=== PATIENT | male | born 1965 | race Caucasian/White ===

== ENCOUNTER 2020-09-27 11:36 | Observation (INO) | payer BC, SELFPAY ==
[2020-09-27] VITALS (15 sets, daily range): BP systolic 149–220; BP diastolic 76–141; PULSE 76–97; RESP 14–18; TEMP 36.1–37; O2SAT 94–98; BMI 39.3; BMI 39.2
--- NOTE | 2020-09-27 11:58 | CT_ITS ---
STUDY: CT BRAIN WITHOUT CONTRAST REASON FOR EXAM: Male, 55 years old. Htn, paraesthesias RADIATION DOSAGE (If Supplied By Facility): CTDIvol = ( 38.43 ) mGy, DLP = ( 712.69 ) mGycm TECHNIQUE: Transaxial CT imaging of the brain was performed without administration of intravenous contrast material. Individualized dose optimization techniques were used for this CT. COMPARISON: No relevant priors. FINDINGS: Normal soft tissue structures. Normal calvarium. Normal size ventricles and extra-axial spaces for the patient''s age. Normal white matter tracts of the cerebral hemispheres. Normal basal ganglia and thalami. Normal brainstem. Normal cerebellum. There is no intracranial hemorrhage. There are no findings of an acute ischemic infarction. Mild mucosal thickening along the lateral wall of the left maxillary sinus. CT/Brain/Head without Contrast IMPRESSION: Normal unenhanced CT scan of the brain. Electronically Signed: Emanuel Reynoso MD at 12:39 EDT , Service support ,
--- NOTE | 2020-09-27 11:59 | EKG12_ITS ---
Test Reason : HTN Blood Pressure : / mmHG Vent. Rate : 095 BPM Atrial Rate : 095 BPM P-R Int : 180 ms QRS Dur : 100 ms QT Int : 378 ms P-R-T Axes : 029 019 120 degrees QTc Int : 475 ms Normal sinus rhythm T wave abnormality, consider lateral ischemia Prolonged QT Abnormal ECG Confirmed by PATRIA BONNER, LINNEA ([id number]), commercial production editor MIRIAM WILSON ([id number]) on 09/28/2020 12:43:35 PM Referred By: TIFFANY/KELSEY Confirmed By:LINNEA ESPAÑA MD
--- NOTE | 2020-09-27 12:00 | EX.ED.DYSGE1 ---
HPI History of Present Illness Chief Complaint: Hypertension Detail of Chief Complaint: Blood pressure elevation that was noted today Informant: patient Narrative Narrative: Patient presents to the emergency department stating that he was found to have high blood pressure today. Patient had a wellness clinic at work and told his blood pressure was 210/130 and that he needed to see somebody. Patient went to urgent care and then was referred to the emergency department. Patient complains of a mild headache. Overall he states that he feels well. Patient states he has not seen a doctor in over 18 years and really has not had his blood pressure checked recently. He does not take any medications. Patient also states that about a month ago started having some numbness in his left shoulder as well as his left flank and left foot which has been continuous since that time. Patient denies any new medications. He denies chest pain or shortness of breath. Prior similar symptoms: No PFSH PFSH Home Medications NK 09/27/20 [History Last Taken Unknown] Allergy/AdvReac Type Severity Reaction Status Date / Time No Known Allergies Allergy Verified 09/27/20 11:37 Surgical History (Updated 09/27/20 @ 12:01 by Marleni Smiley) Hx of umbilical hernia repair Social History Smoking Status: Never smoker ROS ROS ED Constitutional Constitutional ED: Reports systems reviewed and no addt'l complaints, except as documented; Denies body ache(s), change in weight or chills Eyes Eyes: Denies acute decrease in peripheral vision, change in vision, double vision or loss of vision ENT ENT ED: Reports none; Denies ear pain, lip swelling, loss taste/smell, neck pain, otalgia or sore throat Cardiovascular Cardiovascular: Reports none; Denies abdominal pain, chest pain with activity, leg edema, lightheadedness, palpitations, rapid heart rate or syncope Respiratory/Chest Respiratory/Chest: Reports none; Denies change in mental status, dry cough, dyspnea, hemoptysis, shortness of breath at rest or shortness of breath with exertion Gastrointestinal Gastrointestinal: Reports none; Denies abdominal pain, change in stool character, diarrhea, hematemesis, hematochezia, melena, rectal bleeding or vomiting Genitourinary Genitourinary ED: Reports none; Denies abdominal discomfort, anuria, dysuria, genital pain or polyuria Musculoskeletal Musculoskeletal: Reports none; Denies arthralgias, back pain, difficulty walking, extremity pain, muscle weakness or myalgias Integumentary Reports none; Denies abscess or rash Neurologic Neurologic: Reports none, numbness and other Details: Headache ; Denies abnormal gait, confusion, focal weakness, frequent falls, headache(s), loss of vision, paresthesias, radicular pain, vertigo or weakness Psychiatric Psychiatric: Reports systems reviewed and no addt'l complaints, except as documented and none; Denies behavioral changes, confusion, difficulty concentrating, hallucinations, suicidal ideation, tactile hallucinations or visual hallucinations Endocrine Endocrinology: Denies none, cold intolerance, excessive sweating, fatigue or heat intolerance Hematologic/Lymphatic Hematologic/Lymphatic: Reports none; Denies anemia, easy bleeding or easy bruising Allergic/Immunologic Allergic/Immunologic ED: Denies as per HPI, none, lip swelling, mouth swelling, throat swelling, tongue swelling or hives EXAM Physical Exam Const Vital Signs: 09/27/20 11:37 09/27/20 12:12 09/27/20 12:15 Temperature 97 F L Temperature Source Temporal Pulse Rate 97 96 Respiratory Rate 16 14 Respiratory Effort Normal Respiratory Pattern Normal Blood Pressure 216/136 H 220/141 H Blood Pressure Mean 162 167 Pulse Ox 98 96 Oxygen Delivery Method Room Air Room Air 09/27/20 13:47 Temperature Temperature Source Pulse Rate 82 Respiratory Rate Respiratory Effort Respiratory Pattern Blood Pressure 183/117 H Blood Pressure Mean 139 Pulse Ox Oxygen Delivery Method Positive well nourished and well developed General Appearance ED: well developed and NAD HEENT Reports TM's clear and moist mucous membranes normocephalic and atraumatic; Negative for trauma or tenderness Tympanic Membrane ED: Yes TM's clear Eyes PERRL and EOMs intact bilaterally General Eye ED: Negative for pale conjunctiva or scleral icterus Neck no lymphadenopathy, supple and no JVD General: Negative for tenderness Chest Wall inspection of chest normal and palpation of chest normal Chest: Negative for tenderness Resp normal respiratory effort and clear to auscultation bilaterally Effort and Inspection: Negative for respiratory distress or pain with movement Auscultation: Negative for rhonchi, wheezes or diminished lung sounds Cardio regular rate, regular rhythm, S1 normal heart sound, S2 normal heart sound and no murmurs Peripheral Pulses: pulses 2+ throughout GI normal to inspection, nondistended, normoactive bowel sounds, soft to palpation, non-tender, non-distended and no masses Back/Spine no CVA tenderness and no thoracic nor lumbar tenderness Extremity normal to inspection General Extremety ED: Negative for edema General Extremity: Negative for edema Neuro oriented x3, CN's II-XII intact bilaterally, no sensory deficits noted and gait normal Sensorium / Orientation: awake, alert, oriented to person, oriented to place and oriented to time Motor Exam: strength 5/5 throughout and strength abnormal Psych mental status grossly normal Skin no rashes or lesions noted and no wounds MDM MDM MDM Narrative Medical decision making narrative: Patient received labetalol 40 mg IV and his systolic improved into the 180s however his diastolic continues to be quite elevated into the 1 teens and 120s. This point case discussed with hospitalist will evaluate patient for admission to further attempt to manage his blood pressure Lab Data Attestation: I reviewed the patient's lab results. Labs: Laboratory Results - last 24 hr 09/27/20 09/27/20 12:08 12:08 WBC 10.7 RBC 5.62 Hgb 15.6 Hct 47.4 MCV 84.3 MCH 27.8 MCHC 32.9 RDW Std Deviation 39.6 RDW Coeff of Elier 12.8 Plt Count 301 MPV 10.7 Immature Gran % (Auto) 0.300 Neut % (Auto) 82.6 H Lymph % (Auto) 10.5 L Elliott % (Auto) 5.5 Eos % (Auto) 0.7 Baso % (Auto) 0.4 Absolute Neuts (auto) 8.9 H Absolute Lymphs (auto) 1.13 Nucleated RBC % 0 Sodium 134 L Potassium 4.0 Chloride 104 Carbon Dioxide 28.0 Anion Gap 2 L BUN 16 Creatinine 1.13 Estim Creat Clear Calc 77.16 Est GFR (MDRD) Af Amer 87 Est GFR (MDRD) Non-Af 72 BUN/Creatinine Ratio 14.2 Glucose 110 H Calcium 8.9 Troponin I High Sens 17.8 Radiography Diagnostic Testing: Radiology Impression Brain CT 09/27/20 11:58 IMPRESSION: Normal unenhanced CT scan of the brain. Electronically Signed: Emanuel Reynoso MD at 12:39 EDT , Service support , EKG Initial EKG: Attestation: I personally reviewed and interpreted this EKG as follows: Comments: Sinus rhythm with a ventricular rate of [address] changes. Patient has flipped T waves in lateral leads. No old EKGs available for comparison. Prior EKG tracings: not available for review Discharge Plan Triage Chief Complaint: Hypertension ED Provider: Franky Alatorre Dx/Rx/DC Orders Clinical Impression: Hypertensive urgency Prescriptions: No Action NK RF: 0 Primary Care Provider: Care Physician,No Primary Referrals: Care Physician,No Primary [Primary Care Provider] - Disposition Disposition: Acute Care Hospital [facility]
--- NOTE | 2020-09-27 12:03 | NURSING ---
NO OLD EKGS
[2020-09-27 12:19] LABS: Absolute Lymphocyte Count 1.13 X10^3/uL (0.83-4.51); Absolute Neutrophil Count 8.9 X10^3/uL (2.0-7.7); Basophil# 0.04 X10^3/uL; Basophil% 0.4 % (0-1); Eosinophil# 0.08 X10^3/uL; Eosinophils% 0.7 % (0-5); Hematocrit 47.4 % (40-54); Hemoglobin 15.6 g/dL (13.0-16.5); Lymphocyte # 1.13 X10^3/ul (0.83-4.51); Lymphocyte % 10.5 % (19-41); Mean Corp Hgb Conc 32.9 g/dL (32-36); Mean Corpuscular Hgb 27.8 pg (27.0-32.0); Mean Corpuscular Volume 84.3 fL (80-94); Mean Platelet Vol. 10.7 fl (6.2-12.0); Monocyte# 0.59 X10^3/uL; Monocyte% 5.5 % (0-10); NRBC Flagged by Analyzer 0 % (0-5); Neutrophil # 8.85 X10^3/uL (2.7-7.7); Neutrophil % 82.6 % (47-70); Platelet Count 301 K/mm3 (150-450); RBC Distribution Width CV 12.8 % (11.6-14.6); RBC Distribution Width SD 39.6 fl (35.1-43.9); Red Blood Count 5.62 M/mm3 (4.6-6.2); White Blood Count 10.7 K/mm3 (4.4-11.0)
[2020-09-27 12:36] LABS: Anion Gap 2 (5-15); BUN 16 mg/dL (7-18); BUN/Creat Ratio 14.2 RATIO (10-20); Calcium,Total 8.9 mg/dL (8.5-10.1); Chloride 104 mmol/L (98-107); Creatinine, Serum 1.13 mg/dL (0.70-1.30); EST Glomerular Filtration Rate 72 mL/min (>60); Est Glom Filt Rate - Afr Amer 87 mL/min (>60); Estimated Creatinine Clearance 77.16 ml/min; Glucose 110 mg/dL (74-106); Sodium Level 134 mmol/L (136-145); Troponin-I HS 17.8 pg/mL (3.0-78.5)
[2020-09-27] MEDS: Labetalol 100 MG/20 ML Vial 40 MG IV (13:07)
--- NOTE | 2020-09-27 14:18 | HP.PCM.HOS_ITS ---
HPI - General General Date of Admission: 09/27/20 Date of Service: 09/27/20 Chief Complaint: Elevated BP, 1 month history of L sided paresthesias HPI Narrative The patient is a 55 y/o M w/ PMHx: Obesity who presents to the [facility] ED on 09/27/20 as referral from Urgent care secondary to history of being at work today, doing wellness clinic with BP check noted to be 210/130 with mild headache in addition onset L sided paresthesias which have remained nearly 1 month ago with referral to the for evaluation with immediate referral to the ED for evaluation. He currently notes mild headache. He denies any associated chest pain, dyspnea upon presentation. He has not seen a physician in nearly 20 years per report. He specifically notes the paresthesias are focally on the left focal deltoid, left lateral focal abdomen, left calf although this resolved, left foot but notes difficulties even attempting to described the level of decreased sensation. He notes his headache as dull, aching, 3/10 in severity with no light or sound sensitivity. He notes he does not routinely have headaches. He has never been diagnosed with HTN. Patient did report having a pinched nerve back in May while he was working on his truck with lumbar back pain at that time although this has since resolved and he denies any recent injury or trauma. Work-up in the ED included T 97, heart 97, BP initially 216/136 with repeat 183/117, respiratory rate 16, 98% on room air, CBC with WBC 10.7, hemoglobin 15.6, platelet 301 with left shift, BMP with sodium 134, glucose 110 otherwise not marked appearing, troponin high-sensitivity 17.8, CT head with no acute i ntracranial findings despite reported history of left-sided paresthesias x 1 month, EKG with SR with flipped T waves laterally without comparison. In the ED patient administered labetalol 40 mg IV x1. [facility] Medical History (Updated 09/27/20 @ 15:[address] Tessy Molina MD) Obesity (BMI 30-39.9) Home Medications NK 09/27/20 [History Last Taken Unknown] Allergy/AdvReac Type Severity Reaction Status Date / Time No Known Allergies Allergy Verified 09/27/20 11:37 Family History (Updated 09/27/20 @ 15:[address] Tessy Molina MD) Father Myocardial infarction, Onset Age: 75 s/p CABG Heart disease Hypertension Thyroid disorder other (Patient denies any marked maternal family history including HD, DM, CA.) Surgical History (Updated 09/27/20 @ 12:01 by Marleni Smiley) Hx of umbilical hernia repair Social History (Updated 09/27/20 @ 15:[address] 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 Smoking Status: Never smoker alcohol intake: current alcohol intake frequency: holidays/special occasions only substance use type: does not use ROS ROS Narrative Admission Review of Systems: CONSTITUTIONAL: No weight loss, fever, chills, weakness or fatigue. HEENT: + headache. Eyes: No visual loss, blurred vision, double vision or yellow sclerae. Ears, Nose, Throat: No hearing loss, sneezing, congestion, runny nose or sore throat. SKIN: No rash or itching, lesions, wounds. CARDIOVASCULAR: No chest pain, chest pressure or chest discomfort, palpitations, edema, orthopnea, syncopal events. RESPIRATORY: No shortness of breath, cough or sputum, wheezing, hemoptysis. GASTROINTESTINAL: No anorexia, nausea, vomiting or diarrhea, abdominal pain, melena, BRBPR. GENITOURINARY: No dysuria, frequency, urgency or retention. NEUROLOGICAL: + headache, L sided atypical paresthesias, No dizziness, syncope, paralysis, ataxia, focal weakness, change in bowel or bladder control, seizure. MUSCULOSKELETAL: + muscle, back pain, joint pain or stiffness. HEMATOLOGIC: No anemia, bleeding or bruising. LYMPHATICS: No enlarged nodes. No history of splenectomy. PSYCHIATRIC: No history of depression or anxiety. ENDOCRINOLOGIC: No reports of sweating, cold or heat intolerance. No polyuria or polydipsia. ALLERGIES: No history of asthma, hives, eczema or rhinitis. Vital Signs Vital Signs Vital Signs: 09/27/20 11:37 09/27/20 12:12 09/27/20 12:15 Temperature 97 F L Temperature Source Temporal Pulse Rate 97 96 Respiratory Rate 16 14 Respiratory Effort Normal Respiratory Pattern Normal Blood Pressure 216/136 H 220/141 H Blood Pressure Mean 162 167 Pulse Ox 98 96 Oxygen Delivery Method Room Air Room Air 09/27/20 13:47 Temperature Temperature Source Pulse Rate 82 Respiratory Rate Respiratory Effort Respiratory Pattern Blood Pressure 183/117 H Blood Pressure Mean 139 Pulse Ox Oxygen Delivery Method Weight Weight: 274 lb Body Mass Index (BMI) 39.3 Physical Exam Narrative Physical Examination: General: Awake, alert, oriented x 3 and cooperative, seated upright in the ED bed in no apparent distress. Skin: Normal color, normal turgor, no icterus, no cyanosis. HEENT: AT/NC, EOMI, PERRLA, MMM, no carotid bruits or JVD noted; however thickened neck makes examination difficult. Lungs: CTA bilaterally, moderate effort, mild decrease BL bases, no rales, ronchi or wheezing. Heart: Regular rate and rhythm; no gallop, rub audible. Abdomen: Soft, obese, NTTP, ND, normal BS, no obvious HSM however habitus makes examination difficult. Extremities: No cyanosis, clubbing, or edema. Neurological: Patient awake, alert, oriented as noted, cognitive function intact; pupils equally reactive to light and accommodation, cranial nerves II- XII grossly normal, moving all 4 extremities, no focal deficits, strength preserved, negative Babinski, [id number] and qjhq-nw-nnax appropriate, very specific focal regions of described decreased sensation on the left focal deltoid, left lateral abdomen/flank, left foot. Psychiatric: Affect appears normal, no acute evidence of depressive or anxiety feelings. Results Lab / Micro Data Result Diagrams: 09/27/20 12:08 09/27/20 12:08 Labs: Laboratory Results - last 24 hr 09/27/20 12:08: WBC 10.7, RBC 5.62, Hgb 15.6, Hct 47.4, MCV 84.3, MCH 27.8, MCHC 32.9, RDW Std Deviation 39.6, RDW Coeff of Elier 12.8, Plt Count 301, MPV 10.7, Immature Gran % (Auto) 0.300, Neut % (Auto) 82.6 H, Lymph % (Auto) 10.5 L, Taylor % (Auto) 5.5, Eos % (Auto) 0.7, Baso % (Auto) 0.4, Absolute Neuts (auto) 8.9 H, Absolute Lymphs (auto) 1.13, Nucleated RBC % 0 09/27/20 12:08: Sodium 134 L, Potassium 4.0, Chloride 104, Carbon Dioxide 28.0, Anion Gap 2 L, BUN 16, Creatinine 1.13, Estim Creat Clear Calc 77.16, Est GFR (MDRD) Af Amer 87, Est GFR (MDRD) Non-Af 72, BUN/Creatinine Ratio 14.2, Glucose 110 H, Calcium 8.9, Troponin I High Sens 17.[address] 09/27/20 11:58 IMPRESSION: Normal unenhanced CT scan of the brain. Electronically Signed: Emanuel Reynoso MD at 12:39 EDT , Service support , Assessment & Plan Assessment/Plan (1) Hypertensive urgency: PLAN: The patient is a 55 y/o M w/ PMHx: Obesity who presents to the [facility] ED on 09/27/20 as referral from Urgent care secondary to history of being at work today, doing wellness clinic with BP check noted to be 210/130 with mild hea dache in addition onset L sided paresthesias which have remained nearly 1 month ago with referral for evaluation. 1. Elevated BP without HTN, Concerning for Hypertensive Urgency: EKG in ED with SR with flipped T waves laterally without comparison, CXR not performed in the ED, initial trop high-sensitivity normal x 1. Will admit to PCU, place on a monitored bed to assure no acute myocardial infarction with serial cardiac enzymes and EKGs. Will initiate oral hypertensive regimen especially given #2 has been ongoing times once but continue work-up as noted aside avoiding permissive hypertension given timeline. Goal currently given elevated pressure upon presentation would be 170-180s and then stepwise down until controlled. Will initiate with regimen of lisinopril/hydrochlorothiazide. Will have as needed agents as needed. ASA, NG, morphine. 2. Left-sided paresthesias, Atypical, unclear etiology, possible TIA/CVA BUT low suspicion: Will obtain MRI Brain as well as of the cervical spine given paresthesias and no findings currently on CT head which would be expected, MRA Head and carotid US of the neck, ECHO, PT/OT/Speech/Nutrition evaluation per protocol. Given timeline we will not pursue permissive hypertension but will elect to treat blood pressure especially given presentation as noted #1, maintain on asa, add statin w/ AM FLP, fall precautions. TSH, Mag, FLP, HgBA1c pending. 3. Obesity: Weight loss and lifestyle changes encouraged. 4. DVT Prophylaxis: SCDs, lovenox. Charges/Coding Visit Charges OBSV E&M: 49584 Initial observation care L3
--- NOTE | 2020-09-27 14:23 | CM.ED ---
SW Note Referral Reason: No PCP Referral Source: Case Find SW met with patient. Advised that on the chart it notes patient has no PCP. Patient was provided with handout on [facility] PCP as well as PCP in the community, including [facility]. Patient and his support person appreciative of this information. SW remains available if needs arise. Plan: Providing patient with list of local PCP (Primary Care Providers) Arina QUINTANILLA
--- NOTE | 2020-09-27 14:24 | NURSING ---
DR MARSH FOR DR ALLEN
[2020-09-27 15:19] LABS: Magnesium 2.5 mg/dL (1.6-2.6); Thyroid Stim Hormone (TSH) 3.24 uIU/mL (0.358-3.74)
[2020-09-27 15:20] LABS: Hemoglobin A1c 5.9 % (3.8-5.6)
--- NOTE | 2020-09-27 15:43 | MRI_ITS ---
STUDY: MRI BRAIN WITHOUT CONTRAST REASON FOR EXAM: Male, 55 years old. CVA, HTN urgency, LEFT leg and shoulder numbness x 1 month TECHNIQUE: Standardized multiplanar fat and water weighted pulse sequences were obtained. COMPARISON: CT head 09/27/2020. FINDINGS: No intracranial mass, mass effect or midline shift. No territorial infarct hemorrhage, territorial infarct or acute ischemia. Normal size of the ventricles and extra-axial spaces for the patient''s age. Normal white matter tracts of the supratentorial brain. T2 signal hyperintensity in the right thalamic nucleus consistent with chronic lacunar infarct. Normal bilateral basal ganglia. There is no extra-axial fluid accumulation. Normal flow voids within the major intracranial circulation suggesting patency by spin echo criteria. Normal sella turcica, pituitary gland, infundibular stalk, optic chiasm and hypothalamus. Normal midbrain, pradeep and medulla. Normal cerebellum. Normal basal cisterns. Normal bilateral temporal bones. Normal visualized paranasal sinuses. Normal calvarium and skull base. Normal visualized soft tissue structures. MRI/Brain without Contrast IMPRESSION: 1. No acute findings. 2. Chronic right thalamic lacunar infarct. Electronically Signed: Sharri Pelayo MD at 22:58 EDT Tel , Service support ,
--- NOTE | 2020-09-27 15:43 | MRI_ITS ---
STUDY: MRI CERVICAL SPINE WITHOUT CONTRAST REASON FOR EXAM: Male, 55 years old. L sided paresthesias TECHNIQUE: Standardized fat and water weighted pulse sequences were obtained in the sagittal and axial planes. COMPARISON: None FINDINGS: Slightly limited due to patient motion. Normal foramen magnum and brainstem-cervical cord junction. Normal craniovertebral junction. Normal anterior atlantoaxial articulation. Normal odontoid process. Normal cervical lordosis. Normal vertebral bodies and posterior osseous elements. C2-3: Normal endplates. Normal disc height, signal and morphology. Normal central canal and intervertebral neural foramina. C3-4: Normal endplates. Normal disc height, signal and morphology. Normal central canal. Severe right foraminal stenosis due to uncinate and facet hypertrophy. C4-5: Normal endplates. Disc space narrowing. Normal central canal. Severe bilateral foraminal stenosis due to uncinate and right facet hypertrophy. C5-6: Normal endplates. Disc space narrowing. Mild spondylotic bar causes cord flattening. Borderline canal stenosis. Severe bilateral foraminal stenosis due to uncinate hypertrophy. C6-7: Normal endplates. Disc space narrowing. Mild spondylotic bar causes cord flattening and moderate canal stenosis. Severe foraminal stenosis due to uncinate hypertrophy. C7-T1: Normal endplates. Normal disc height, signal and morphology. Normal central canal and intervertebral neural foramina. Normal cervical cord. Normal visualized soft tissue structures. MRI/Spine Cervical (Routine) IMPRESSION: 1. C6-7 canal stenosis and cord flattening. 2. C5-6 cord flattening and borderline canal stenosis. 3. Severe foraminal stenosis from C3-4 through C6-7. Electronically Signed: Sharri Pelayo MD at 22:42 EDT Tel , Service support ,
--- NOTE | 2020-09-27 15:43 | CDU_ITS ---
Reason For Study: CVA Rt. Velocities/BP Lt. Velocities/BP Prox CCA 108.6/25.2 cm/sec. Prox CCA 108.6/23.9 cm/sec. Mid CCA 69.5/14.7 cm/sec. Mid CCA 78.6/18.6 cm/sec. Dist CCA 70.8/14.7 cm/sec. Dist CCA 81.2/25.2 cm/sec. Prox ICA 90.4/21.3 cm/sec. Prox ICA 63.0/9.0 cm/sec. Mid ICA 63.0/22.6 cm/sec. Mid ICA 63.0/17.6 cm/sec. Dist ICA 65.6/25.2 cm/sec. Dist ICA 70.4/31.1 cm/sec. Rt. ICA/CCA = 1.3. Lt. ICA/CCA = .9. Prox ECA 76.0/10.8 cm/sec. Prox ECA 94.9/7.7 cm/sec. Rt. Vert. 38.2/13.4 cm/sec. Lt. Vert. 42.1/17.6 cm/sec. Right Extracranial There is intimal thickening but no significant atherosclerotic plaque noted in the right common carotid artery. There is intimal thickening but no significant atherosclerotic plaque noted in the right internal carotid artery. There is intimal thickening but no significant atherosclerotic plaque noted in the right external carotid artery. Antegrade flow is noted in the right vertebral artery. There is homogeneous, smooth atherosclerotic plaque noted in the right bulb. Left Extracranial There is intimal thickening but no significant atherosclerotic plaque noted in the left common carotid artery. There is intimal thickening but no significant atherosclerotic plaque noted in the left internal carotid artery. There is intimal thickening but no significant atherosclerotic plaque noted in the left external carotid artery. Antegrade flow is noted in the left vertebral artery. There is intimal thickening but no significant atherosclerotic plaque noted in the left bulb. Procedure Carotid Duplex [id number]. This is a Carotid Duplex examination using B-mode, color flow and specral Doppler. The exam was diagnostic. Exam performed portable in patient room. VL/Carotid Duplex Ultrasound Interpretation Summary Intimal thickening right proximal internal carotid artery with less than 50% st enosis Less than 50% stenosis right external carotid artery Intimal thickening left proximal internal carotid artery with less than 50% alise nosis Less than 50% stenosis left external carotid artery Patent and antegrade vertebral arteries bilaterally Ordering Physician: Tessy Molina Performed By: Minh Amador RVT
--- NOTE | 2020-09-27 15:43 | MRI_ITS ---
STUDY: MRA OF THE HEAD WITHOUT CONTRAST REASON FOR EXAM: Male, 55 years old. CVA, HTN urgency, LEFT leg and shouloder numbness x 1 month TECHNIQUE: 3-D [id number] (TOF) imaging was performed with MIPs. The study was performed unenhanced. COMPARISON: None. FINDINGS: Normal bilateral petrous an cavernous carotid arteries. Normal anterior cerebral arteries. Normal intact anterior communicating artery (ACOM). Normal M1 and M2 segments of the middle cerebral arteries, with normal M1 bifurcations. Normal right posterior communicating artery (PCOM). Normal left posterior communicating artery (PCOM). Normal bilateral vertebral arteries. Normal basilar artery with a normal basilar bifurcation. The visualized bilateral superior cerebellar (SCA) arteries are normal. Normal bilateral P1, P2 and visualized P3 segments of the posterior cerebral arteries. There is no demonstrated aneurysm of the pala of [place]. No high-grade stenosis or occlusion. MRI/MRA Head ONLY without Contrast IMPRESSION: Normal MRA of the head Electronically Signed: Sharri Pelayo MD at 21:57 EDT Tel , Service support ,
--- NOTE | 2020-09-27 15:43 | ECHOCS_ITS ---
Reason For Study: CVA Procedure This was a 2D Doppler, Color Flow transthoracic echocardiogram. The study was technically difficult. Contrast injection was performed. Exam performed portable in patient room. Left Ventricle Normal LV size. Left ventricular systolic function is normal. The estimated ejection fraction is 65 %. Diastolic function is indeterminate. No regional wall motion abnormalities noted. Right Ventricle Normal RV size. Normal systolic function. Atria The left atrium is mildly enlarged. Normal right atrium. No doppler evidence for ASD. Bubble contrast study negative for right to left interatrial shunt. Mitral Valve There is no mitral annular calcification. Mild diffuse mitral valve thickening. Trivial mitral valve insufficiency. Tricuspid Valve Normal tricuspid valve. Trivial tricuspid valve insufficiency. Unable to estimate RV systolic pressure/pulmonary artery pressure due to technically difficult study. Aortic Valve Trisinus/trileaflet aortic valve. Normal aortic valve. Pulmonic Valve The pulmonic valve is not well visualized. Great Vessels Normal sized aortic root. Pericardium/Pleural No pericardial effusion. Medication Performed a rapid injection of agitated mix of 9 cc saline and 1cc air to assess for atrial septal defect. Diluted definity 3ml given slow IV push to enhance endocardial definition. MMode/2D Measurements & Calculations LVIDd: 4.5 cm IVSd: 1.7 cm Ao root diam: 3.4 cm LVIDs: 2.9 cm LVPWd: 1.7 cm RVDd: 3.5 cm FS: 35.2 % LAV(MOD-bp): 56.2 ml LVAd ap4: 37.0 cm2 SV(MOD-sp4): 82.4 ml LAV(MOD-bp) Indexed: 23.6 ml/m2 LVLd ap4: 9.2 cm LAV(MOD-sp2): 56.5 ml EDV(MOD-sp4): 123.9 ml LAV(MOD-sp4): 55.8 ml EDV(sp4-el): 126.6 ml LVAs ap4: 19.7 cm2 LVLs ap4: 7.9 cm ESV(MOD-sp4): 41.5 ml ESV(sp4-el): 41.9 ml EF(MOD-sp4): 66.5 % EF(sp4-el): 66.9 % SV(sp4-el): 84.7 ml LA A4 area: 18.8 cm2 LA dimension(2D): 4.7 cm RA A4 area: 11.4 cm2 Doppler Measurements & Calculations MV E max gael: 95.9 cm/sec Lat Peak E' Gael: 5.7 cm/sec Med Peak E' Gael: 6.8 cm/sec MV A max gael: 122.3 cm/sec E/E' lat: 16.7 E/E' med: 14.1 MV E/A: 0.78 Ao V2 max: 168.2 cm/sec LV V1 max: 136.6 cm/sec PA V2 max: 150.2 cm/sec Ao max P.3 mmHg LV V1 max P.5 mmHg Ao V2 mean: 117.6 cm/sec Ao mean P.0 mmHg Ao V2 VTI: 27.8 cm ECHO/Echo Complete W/ Contrast Interpretation Summary The study was technically difficult. Contrast injection was performed. Left ventricular systolic function is normal. The estimated ejection fraction is 65 %. The left atrium is mildly enlarged. Mild diffuse mitral valve thickening. Trivial mitral valve insufficiency. Trivial tricuspid valve insufficiency. Unable to estimate RV systolic pressure/pulmonary artery pressure due to techni shea difficult study. Diastolic function is indeterminate. Bubble contrast study negative for right to left interatrial shunt. Ordering Physician: Tessy Molina Performed By: Mariela Bernabe, LATANYA, RVT
[2020-09-27] MEDS: Lisinopril 20 MG Tablet PO (16:08)
[2020-09-27] MEDS: hydroCHLOROthiazide 12.5mg 12.5 MG PO (16:15)
[2020-09-27] MEDS: hydrALAZINE 20 MG/ML Vial 10 MG IV (17:17)
[2020-09-27] MEDS: 0.9% Saline Lock 10 ML Syringe IV ×2 (17:20→21:38)
[2020-09-27 18:19] LABS: Troponin-I HS 19.2 pg/mL (3.0-78.5)
[2020-09-27 20:06] LABS: Troponin-I HS 16.3 pg/mL (3.0-78.5)
[2020-09-27] MEDS: Ondansetron 4 MG/2 ML Vial IV (21:38)
[2020-09-27] MEDS: Famotidine 20 MG Tablet PO (21:38)
[2020-09-27] MEDS: Atorvastatin Calcium 80 MG Tablet PO (21:38)
--- NOTE | 2020-09-27 21:45 | NURSING ---
2000 NIHSS done late d/t pt being down at MRI during that time. CARSON Helm.
[2020-09-28] VITALS (8 sets, daily range): BP systolic 153–171; BP diastolic 82–99; PULSE 78–92; RESP 18; TEMP 36.4–37.2; O2SAT 96–97
[2020-09-28 00:02] LABS: Troponin-I HS 15.9 pg/mL (3.0-78.5)
--- NOTE | 2020-09-28 05:55 | EKG12_ITS ---
Test Reason : AM EKG Blood Pressure : / mmHG Vent. Rate : 087 BPM Atrial Rate : 087 BPM P-R Int : 200 ms QRS Dur : 104 ms QT Int : 402 ms P-R-T Axes : 011 027 137 degrees QTc Int : 483 ms Normal sinus rhythm T wave abnormality, consider lateral ischemia Prolonged QT Abnormal ECG Confirmed by SUKHJINDER BONNER, DERRICK ([id number]), video editor MIRIAM WILSON ([id number]) on 09/29/2020 9:10:35 AM Referred By: DR MARSH Confirmed By:DERRICK SLAUGHTER MD
--- NOTE | 2020-09-28 06:30 | PN.HOSP_ITS ---
Objective Data Objective Data Vital Signs: Vital Signs Temp Pulse Resp BP Pulse Ox 98.9 F 83 18 171/99 H 96 09/28/20 05:30 09/28/20 05:30 09/28/20 05:30 09/28/20 05:30 09/28/20 05:30 Oxygen Delivery Method Room Air Weight: 266 lb 15.677 oz Body Mass Index (BMI) 39.2 Intake & Output: Intake and Output for Last 24 Hours 09/26/20 09/27/20 09/28/20 23:59 23:59 23:59 Intake Total 480 / 480 Balance 480 / 480 Lab / Micro Data Result Diagrams: 09/27/20 12:08 09/27/20 12:08 Labs: Laboratory Results - last 24 hr 09/27/20 12:08: WBC 10.7, RBC 5.62, Hgb 15.6, Hct 47.4, MCV 84.3, MCH 27.8, MCHC 32.9, RDW Std Deviation 39.6, RDW Coeff of Elier 12.8, Plt Count 301, MPV 10.7, Immature Gran % (Auto) 0.300, Neut % (Auto) 82.6 H, Lymph % (Auto) 10.5 L, [place] % (Auto) 5.5, Eos % (Auto) 0.7, Baso % (Auto) 0.4, Absolute Neuts (auto) 8.9 H, Absolute Lymphs (auto) 1.13, Nucleated RBC % 0 09/27/20 12:08: Sodium 134 L, Potassium 4.0, Chloride 104, Carbon Dioxide 28.0, Anion Gap 2 L, BUN 16, Creatinine 1.13, Estim Creat Clear Calc 77.16, Est GFR (MDRD) Af Amer 87, Est GFR (MDRD) Non-Af 72, BUN/Creatinine Ratio 14.2, Glucose 110 H, Calcium 8.9, Troponin I High Sens 17.8 09/27/20 12:08: Magnesium 2.5, TSH 3.24 09/27/20 12:08: Hemoglobin A1c 5.9 H 09/27/20 16:50: Troponin I High Sens 19.2 09/27/20 19:10: Troponin I High Sens 16.3 09/27/20 23:10: Troponin I High Sens 15.9 Radiography Diagnostic Testing: Radiology Impression Brain CT 09/27/20 11:58 IMPRESSION: Normal unenhanced CT scan of the brain. Electronically Signed: Emanuel Reynoso MD at 12:39 EDT , Service support , Brain MRI 09/27/20 15:43 IMPRESSION: 1. No acute findings. 2. Chronic right thalamic lacunar infarct. Electronically Signed: Sharri Pelayo MD at 22:58 EDT Tel , Service support , Carotid Duplex 09/27/20 15:43 Interpretation Summary Intimal thickening right proximal internal carotid artery with less than 50% stenosis Less than 50% stenosis right external carotid artery Intimal thickening left proximal internal carotid artery with less than 50% stenosis Less than 50% stenosis left external carotid artery Patent and antegrade vertebral arteries bilaterally Ordering Physician: Tessy Molina Performed By: Minh Amador, T Cervical Spine MRI 09/27/20 15:43 IMPRESSION: 1. C6-7 canal stenosis and cord flattening. 2. C5-6 cord flattening and borderline canal stenosis. 3. Severe foraminal stenosis from C3-4 through C6-7. Electronically Signed: Sharri Pelayo MD at 22:42 EDT Tel , Service support , Head MRA 09/27/20 15:43 IMPRESSION: Normal MRA of the head Electronically Signed: Sharri Pelayo MD at 21:57 EDT Tel , Service support ,
[2020-09-28 07:16] LABS: Absolute Lymphocyte Count 1.09 X10^3/uL (0.83-4.51); Absolute Neutrophil Count 11.1 X10^3/uL (2.0-7.7); Basophil# 0.05 X10^3/uL; Basophil% 0.4 % (0-1); Eosinophils% 0.8 % (0-5); Hematocrit 47.2 % (40-54); Hemoglobin 14.7 g/dL (13.0-16.5); Lymphocyte # 1.09 X10^3/ul (0.83-4.51); Lymphocyte % 8.2 % (19-41); Mean Corp Hgb Conc 31.1 g/dL (32-36); Mean Corpuscular Hgb 26.5 pg (27.0-32.0); Mean Corpuscular Volume 85.2 fL (80-94); Mean Platelet Vol. 11.6 fl (6.2-12.0); Monocyte# 0.91 X10^3/uL; Monocyte% 6.8 % (0-10); NRBC Flagged by Analyzer 0 % (0-5); Neutrophil # 11.12 X10^3/uL (2.7-7.7); Neutrophil % 83.5 % (47-70); Platelet Count 304 K/mm3 (150-450); RBC Distribution Width CV 13.3 % (11.6-14.6); RBC Distribution Width SD 41.4 fl (35.1-43.9); Red Blood Count 5.54 M/mm3 (4.6-6.2); White Blood Count 13.3 K/mm3 (4.4-11.0)
[2020-09-28 07:45] LABS: AST(SGOT) 17 U/L (15-37); Alanine Aminotransfer ALT/SGPT 28 U/L (16-61); Albumin, Serum 3.5 g/dL (3.2-5.0); Alkaline Phosphatase 76 U/L (45-117); Anion Gap 6 (5-15); BUN 16 mg/dL (7-18); BUN/Creat Ratio 16.1 RATIO (10-20); Calcium,Total 8.7 mg/dL (8.5-10.1); Chloride 103 mmol/L (98-107); Cholesterol 231 mg/dL (200); EST Glomerular Filtration Rate 83 mL/min (>60); Est Glom Filt Rate - Afr Amer 101 mL/min (>60); Estimated Creatinine Clearance 87.19 ml/min; Globulin 3.6 g/dL (2.2-4.2); Glucose 106 mg/dL (74-106); High Density Lipoprotein 49 mg/dL; Potassium 3.7 mmol/L (3.5-5.1); Protein, Total 7.1 g/dL (6.4-8.2); Sodium Level 137 mmol/L (136-145); Triglycerides 131 mg/dL; Very Low Density Lipoprotein 26 mg/dL (5-40)
--- NOTE | 2020-09-28 07:55 | CONS.ORTHO ---
HPI Consult Data Date of Consult: 09/28/20 HPI Narrative HPI Narrative: SO NG, is a 55 M who is currently admitted for hypertension/rule out CVA. He states he was at work when they took his blood pressure and found it to be 210/130. He was subsequently sent here for management. Spine surgery has been consulted for patient complaints of decreased sensation in the left upper and lower extremity. The patient denies any history of neck or back injuries or surgeries. He denies any neck or back pain at this time. His only complaints are mild decrease sensation in the left lateral brachium, the left anterior thigh and left lateral leg and ankle. He denies any other acute numbness tingling weakness or changes in bowel or bladder function. [facility] Medical History (Updated 09/28/20 @ 08:[address] Gideon Dumont DO) Non-smoker Obesity (BMI 30-39.9) Home Medications NK 09/27/20 [History Last Taken Unknown] Allergy/AdvReac Type Severity Reaction Status Date / Time No Known Allergies Allergy Verified 09/27/20 11:37 Family History (Updated 09/27/20 @ 15:[address] Tessy Molina MD) Father Myocardial infarction, Onset Age: 75 s/p CABG Heart disease Hypertension Thyroid disorder Surgical History (Updated 09/27/20 @ 12:01 by Marleni Smiley) Hx of umbilical hernia repair Social History (Updated 09/27/20 @ 15:[address] 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 Smoking Status: Never smoker alcohol intake: current alcohol intake frequency: holidays/special occasions only substance use type: does not use Vital Signs Vital Signs Vital Signs: 09/27/20 11:37 09/27/20 12:12 09/27/20 12:15 Temperature 97 F L Temperature Source Temporal Pulse Rate 97 96 Pulse Strength Respiratory Rate 16 14 Respiratory Effort Normal Respiratory Depth Respiratory Pattern Normal Blood Pressure 216/136 H 220/141 H Blood Pressure [BP] Blood Pressure Mean 162 167 Blood Pressure Mean [BP] Blood Pressure Source Blood Pressure Source [BP] Blood Pressure Position Blood Pressure Position [BP] Blood Pressure Location Blood Pressure Location [BP] Pulse Ox 98 96 Oxygen Delivery Method Room Air Room Air 09/27/20 13:47 09/27/20 15:03 09/27/20 15:48 Temperature 97.4 F L Temperature Source Temporal Pulse Rate 82 76 81 Pulse Strength Respiratory Rate 16 Respiratory Effort Respiratory Depth Respiratory Pattern Blood Pressure 183/117 H 178/117 H Blood Pressure [BP] Blood Pressure Mean 139 137 Blood Pressure Mean [BP] Blood Pressure Source Blood Pressure Source [BP] Blood Pressure Position Blood Pressure Position [BP] Blood Pressure Location Blood Pressure Location [BP] Pulse Ox 94 Oxygen Delivery Method Room Air 09/27/20 15:57 09/27/20 17:10 09/27/20 17:11 Temperature 98.1 F Temperature Source Temporal Pulse Rate 80 81 Pulse Strength Respiratory Rate 18 Respiratory Effort Respiratory Depth Respiratory Pattern Blood Pressure 215/124 H Blood Pressure [BP] 203/119 H Blood Pressure Mean 154 Blood Pressure Mean [BP] 147 Blood Pressure Source Monitor Blood Pressure Source [BP] Monitor Blood Pressure Position Semi-Fowlers Blood Pressure Position [BP] Sitting Blood Pressure Location Left Arm Blood Pressure Location [BP] Left Arm Pulse Ox 98 96 96 Oxygen Delivery Method Room Air Room Air Room Air 09/27/20 17:17 09/27/20 17:24 09/27/20 17:36 Temperature Temperature Source Pulse Rate 78 Pulse Strength Respiratory Rate Respiratory Effort Respiratory Depth Respiratory Pattern Blood Pressure 203/119 H Blood Pressure [BP] 188/103 H 149/76 H Blood Pressure Mean Blood Pressure Mean [BP] 131 100 Blood Pressure Source Blood Pressure Source [BP] Monitor Monitor Blood Pressure Position Blood Pressure Position [BP] Sitting Sitting Blood Pressure Location Blood Pressure Location [BP] Left Arm Left Arm Pulse Ox Oxygen Delivery Method 09/27/20 18:15 09/27/20 19:00 09/27/20 21:05 Temperature Temperature Source Pulse Rate 87 Pulse Strength Respiratory Rate 18 Respiratory Effort Respiratory Depth Respiratory Pattern Blood Pressure Blood Pressure [BP] 189/117 H Blood Pressure Mean Blood Pressure Mean [BP] 141 Blood Pressure Source Blood Pressure Source [BP] Monitor Blood Pressure Position Blood Pressure Position [BP] Sitting Blood Pressure Location Blood Pressure Location [BP] Left Arm Pulse Ox 98 Oxygen Delivery Method Room Air 09/27/20 21:30 09/27/20 21:35 09/28/20 01:30 Temperature 98.6 F 98.3 F Temperature Source Oral Oral Pulse Rate 87 92 Pulse Strength Weak (1+) Respiratory Rate 16 18 Respiratory Effort Normal Non-Labored Respiratory Depth Normal Respiratory Pattern Normal Blood Pressure 175/93 H 161/82 H Blood Pressure [BP] Blood Pressure Mean 120 108 Blood Pressure Mean [BP] Blood Pressure Source Monitor Monitor Blood Pressure Source [BP] Blood Pressure Position Supine Semi-Fowlers Blood Pressure Position [BP] Blood Pressure Location Left Arm Left Arm Blood Pressure Location [BP] Pulse Ox 96 97 Oxygen Delivery Method Room Air Room Air 09/28/20 02:15 09/28/20 03:00 09/28/20 05:30 Temperature 98.9 F Temperature Source Oral Pulse Rate 89 83 Pulse Strength Respiratory Rate 18 Respiratory Effort Normal Non-Labored Respiratory Depth Normal Respiratory Pattern Normal Blood Pressure 171/99 H Blood Pressure [BP] Blood Pressure Mean 123 Blood Pressure Mean [BP] Blood Pressure Source Monitor Blood Pressure Source [BP] Blood Pressure Position Semi-Fowlers Blood Pressure Position [BP] Blood Pressure Location Left Arm Blood Pressure Location [BP] Pulse Ox 96 Oxygen Delivery Method Room Air Room Air Weight Weight: 266 lb 15.677 oz Body Mass Index (BMI) 39.2 Physical Exam Const alert, oriented x3 and no apparent distress HEENT normocephalic and head/scalp atraumatic Eyes EOMs intact bilaterally Neck full ROM General: normal visual inspection Chest inspection of chest normal Resp normal respiratory effort and normal air movement Cardio Peripheral Pulses: pulses 2+ throughout GI soft to palpation, non-tender and non-distended Back/Spine thoracic and lumbar spine normal to inspection, thoraco-lumbar ROM normal and straight leg raise negative bilaterally Cervical Spine: cervical ROM normal Extremity normal to inspection, full ROM, normal capillary refill, no clubbing, cyanosis or edema and no calf tenderness Peripheral Pulses: Yes pulses 2+ throughout Neuro oriented x3, CN's II-XII intact bilaterally, moves all extremities, no focal motor deficits and deep tendon reflexes 2+ bilaterally Neuro Narrative: The patient reports a small area of mild decrease sensation in the left lateral brachium, the left lateral hip, the left anterior thigh, and the left anterolateral leg below the knee Sensorium / Orientation: awake and alert Motor Exam: strength 5/5 throughout and muscle tone normal throughout Lab / Micro Data Result Diagrams: 09/28/20 06:20 09/28/20 06:20 Labs: Laboratory Results - last 24 hr 09/27/20 12:08: WBC 10.7, RBC 5.62, Hgb 15.6, Hct 47.4, MCV 84.3, MCH 27.8, MCHC 32.9, RDW Std Deviation 39.6, RDW Coeff of Elier 12.8, Plt Count 301, MPV 10.7, Immature Gran % (Auto) 0.300, Neut % (Auto) 82.6 H, Lymph % (Auto) 10.5 L, [place] % (Auto) 5.5, Eos % (Auto) 0.7, Baso % (Auto) 0.4, Absolute Neuts (auto) 8.9 H, Absolute Lymphs (auto) 1.13, Nucleated RBC % 0 09/27/20 12:08: Sodium 134 L, Potassium 4.0, Chloride 104, Carbon Dioxide 28.0, Anion Gap 2 L, BUN 16, Creatinine 1.13, Estim Creat Clear Calc 77.16, Est GFR (MDRD) Af Amer 87, Est GFR (MDRD) Non-Af 72, BUN/Creatinine Ratio 14.2, Glucose 110 H, Calcium 8.9, Troponin I High Sens 17.8 09/27/20 12:08: Magnesium 2.5, TSH 3.24 09/27/20 12:08: Hemoglobin A1c 5.9 H 09/27/20 16:50: Troponin I High Sens 19.2 09/27/20 19:10: Troponin I High Sens 16.3 09/27/20 23:10: Troponin I High Sens 15.9 09/28/20 06:20: WBC 13.3 H, RBC 5.54, Hgb 14.7, Hct 47.2, MCV 85.2, MCH 26.5 L, MCHC 31.1 L D, RDW Std Deviation 41.4, RDW Coeff of Elier 13.3, Plt Count 304, MPV 11.6, Immature Gran % (Auto) 0.300, Neut % (Auto) 83.5 H, Lymph % (Auto) 8.2 L, [place] % (Auto) 6.8, Eos % (Auto) 0.8, Baso % (Auto) 0.4, Absolute Neuts (auto) 11.1 H, Absolute Lymphs (auto) 1.09, Nucleated RBC % 0 09/28/20 06:20: Sodium 137, Potassium 3.7, Chloride 103, Carbon Dioxide 28.0, Anion Gap 6, BUN 16, Creatinine 1.00, Estim Creat Clear Calc 87.19, Est GFR (MDRD) Af Amer 101, Est GFR (MDRD) Non-Af 83, BUN/Creatinine Ratio 16.1, Glucose 106, Calcium 8.7, Total Bilirubin 0.60, AST 17, ALT 28, Alkaline Phosphatase 76, Total Protein 7.1, Albumin 3.5, Globulin 3.6, Albumin/Globulin Ratio 1.0, Triglycerides 131, Cholesterol 231 H, LDL Cholesterol 156 H, VLDL Cholesterol 26, HDL Cholesterol [address] 09/27/20 11:58 IMPRESSION: Normal unenhanced CT scan of the brain. Electronically Signed: Emanuel Reynoso MD at 12:39 EDT , Service support , Brain MRI 09/27/20 15:43 IMPRESSION: 1. No acute findings. 2. Chronic right thalamic lacunar infarct. Electronically Signed: Sharri Pelayo MD at 22:58 EDT Tel , Service support , Carotid Duplex 09/27/20 15:43 Interpretation Summary Intimal thickening right proximal internal carotid artery with less than 50% stenosis Less than 50% stenosis right external carotid artery Intimal thickening left proximal internal carotid artery with less than 50% stenosis Less than 50% stenosis left external carotid artery Patent and antegrade vertebral arteries bilaterally Ordering Physician: Tessy Molina Performed By: Minh Amador, RVT Cervical Spine MRI 09/27/20 15:43 IMPRESSION: 1. C6-7 canal stenosis and cord flattening. 2. C5-6 cord flattening and borderline canal stenosis. 3. Severe foraminal stenosis from C3-4 through C6-7. Electronically Signed: Sharri Pelayo MD at 22:42 EDT Tel , Service support , Head MRA 09/27/20 15:43 IMPRESSION: Normal MRA of the head Electronically Signed: Sharri Pelayo MD at 21:57 EDT Tel , Service support , Assessment & Plan Assessment/Plan (1) Cervical stenosis of spinal canal: PLAN: I had a lengthy discussion with the patient. I reviewed his imaging with him. He does have a cervical MRI dated 09/27/2020 which shows degenerative changes at multiple levels of the cervical spine with associated stenosis which I feel may be contributing to his upper extremity complaints. I do not recommend surgery at this time. His lower extremity complaints may be due to similar findings in the lumbar spine. No significant myelopathic signs are noted. I recommend activity as tolerated and follow-up with Dr. Dumont in clinic upon discharge for further evaluation. The patient understands and agrees with the treatment plan.
[2020-09-28] MEDS: Famotidine 20 MG Tablet PO (09:08)
[2020-09-28] MEDS: hydroCHLOROthiazide 12.5mg 12.5 MG PO (09:08)
[2020-09-28] MEDS: Lisinopril 20 MG Tablet PO (09:08)
[2020-09-28] MEDS: Aspirin 81 MG TAB.CHEW PO (09:08)
[2020-09-28] MEDS: Enoxaparin 40 MG/0.4 ML Syringe SC (09:08)
--- NOTE | 2020-09-28 10:40 | CASEMGMT ---
SW did not complete a PHQ9 as patient did not have a Stroke or TIA per physician. Alejandra PABON
--- NOTE | 2020-09-28 10:52 | PCM.DC ---
Discharge Instructions Diet Discharge Diet: 1800 Calorie Control Diet (Given your pre-diabetes we recommend following an 1800 ADA/cardiac diet.) Activity Discharge Activity: Return to Normal Activity (With restrictions only per Dr. Dumont discretion.) Dressing / Incision Call your doctor if you observe: Fever of 101 or Higher, Numbness or Tingling (Increased or changing.), Inability to urinate, Shortness of breath, Dizziness, Fainting spells, Swelling in the ankles, Chest pain, Increased palpitations (irregular heartbeat) and Uncontrolled pain Follow Up Care Test Results: Test results from this visit will be discussed in further detail at your follow-up appointment, if applicable. Discharge Plan Admission Admit Date/Time: 09/27/20 14:37 Primary Reason for Your Visit: Hypertensive Urgency, Evidence prior CVA, Cervical neck disease, Pre-DM Attending Provider: Tessy Molina Primary Care Provider: Care Physician,No Primary Consulting Providers: Gideon Dumont Instructions Patient Instructions: Controlling High Blood Pressure, Risk Factors for Stroke, Diabetes Learn Serve Portion Size, Diabetes: Meal Planning, ED Hypertension New Begin Treatment, Diabetes and High Blood Pressure Additional Instructions / Restrictions: During the admission, you were started on medication for your blood pressure. Likely this will need to be increased and adjusted as we slowly want to normalize her blood pressure. During the admission MRI of the brain did note prior evidence of a previous stroke but no acute stroke. It is important that you continue aspirin, statin, your blood pressure regimen and very much so strive to improve your hemoglobin A1c as currently you are prediabetic patients. Diet and lifestyle will play a big role in improving the status. As discussed while inpatient, your primary care physician may decide to start Metformin depending on your efforts with lifestyle and diet. Cervical stenosis of the spinal canal with atypical left-sided paresthesias will continue to be evaluated outpatient with Dr. Dumont. Discharge Orders/Prescriptions Prescriptions: New atorvastatin 80 mg Tablet 80 mg PO QHS 30 Days Qty: 30 RF: 0 aspirin 81 mg Tablet,Chewable 81 mg PO DAILY@0800 30 Days Qty: 30 RF: 0 lisinopril-hydrochlorothiazide 20-12.5 mg tablet 1 tab PO DAILY Qty: 30 RF: 0 Referrals / Follow Up: Kasandra Cage MD [STAFF PHYSICIAN] - (Please follow-up to establish within 3-5 days.) Gideon Dumont DO [STAFF PHYSICIAN] - (Follow-up in 2 weeks.) Disposition Disposition (needs filled in before D/C Order can be placed): Home, Self Care
--- NOTE | 2020-09-28 10:58 | DS.PCM_ITS ---
Providers Date of Admission: 09/27/20 Primary Care Physician: Nicole Primary Care Phys Consultations 09/28/20 06:27 Consult: General Surgery Routine Consulting Provider: Gideon Dumont Reason for Consult: Atypical paresthesias, Cervical disease EMERGENT Consult: No MD Notified: Yes Date Notified: 09/28/20 Time Notified: 06:27 Method of Notification: cortext Reason For Visit: TIA HTN URGENCY Diagnosis Discharge Diagnosis (1) Cervical stenosis of spinal canal: Status: Acute Code(s): M48.02 - Spinal stenosis, cervical region Medications at Discharge Home Medications aspirin 81 mg PO DAILY@0800 30 Days #30 tab 09/28/20 atorvastatin 80 mg PO QHS 30 Days #30 tab 09/28/20 lisinopril-hydrochlorothiazide 1 tab PO DAILY #30 tab 09/28/20 Hospital Course Operations None Procedures 2-D Echocardiogram and EKG Summary of Care Provided Minutes Spent on Discharge: 35 Hospital Course: Discharge Diagnoses: 1. Hypertensive urgency 2. MRI evident chronic right thalamic lacunar infarct with no evidence of acute infarct 3. Hyperlipidemia 4. Prediabetes (5.9%) 5. Obesity Discharge Summary: The patient is a 55 y/o M w/ PMHx: Obesity who presented to the [facility] ED on 09/27/20 as referral from Urgent care secondary to history of being at work on day of presentation, doing wellness clinic with BP check noted to be 210/130 with mild headache in addition onset L sided paresthesias which have remained nearly 1 month ago with referral for evaluation. EKG in ED with SR with flipped T waves laterally without comparison, initial trop high-sensitivity normal x 1. Patient was mated to PCU, maintain on a monitored bed, serial high- sensitivity cardiac enzymes remain unremarkable, repeat EKGs unchanged, initiate d on lower dose lisinopril/hydrochlorothiazide with improvement of blood pressures to 150s to 160s over 80s to 90s with plan continuation of outpatient increase of his regimen to achieve eventual control over the next several days given presented with systolics in the 200s. Lipid panel was also obtained with elevated total cholesterol and LDL with initiation of statin therapy. Given patient atypical history of paresthesias MRI of the brain was obtained with no obvious acute infarct but evidence of a prior right thalamic lacunar infarct, carotid ultrasound with less than 50% stenosis of the right proximal internal carotid and left proximal internal carotid arteries as well as the external c arotids bilaterally with patent antegrade vertebral arteries bilaterally, unremarkable MRA of the head, MRI of the cervical spine with C6-7 canal stenosis and cord flattening, C5-6 cord flattening and borderline canal stenosis, severe foraminal stenosis from C3-4 through C6-[address] Dumont consultation and evaluation in hospital with plan follow-up upon discharge in 2 weeks and possible etiology for atypical paresthesias. Echocardiogram also obtained. Per protocol PT, OT, speech and nutrition consulted during admission. TSH normal, HgBA1c 5.9% with prediabetes with education administered and strong diet and lifestyle change encouragement with discussion of potential future need for initiation of low-dose Metformin. Patient discharged home in stable condition with recommended follow-up with PCP which was established as well as Dr. Dumont with close to continued alteration of diet and lifestyle, continued aspirin, high-dose statin and new hypertensive regimen. Discharge Time: > 35 Minutes DAY OF DISCHARGE PROGRESS NOTE: Subjective: Patient without acute event overnight per self and nursing report. Patient notes headache is resolved. BPs have improved and he is tolerating his current decreased blood pressure, currently 153/98. Patient denies fever, chills, nausea, emesis, abdominal pain, chest pain or dyspnea. Patient agreeable to discharge to home with aggressive follow-up with primary care physician as well as follow-up with Dr. Dumont for his cervical neck disease. Randolph cano will be discharged with follow-up with primary care physician within 3-5 days in addition to follow-up with Dr. Dumont. Objective: 97.6, heart rate 86, BP 153/98, respiratory rate 18, 96% on room air. Physical Examination: General: Awake, alert, oriented x 3 and cooperative, seated upright in the PCU bed, headache resolved, feeling well. Skin: Normal color, normal turgor, no icterus, no cyanosis. HEENT: AT/NC, EOMI, PERRLA, MMM. Lungs: CTA bilaterally, moderate effort, mild decrease BL bases, no rales, ronchi or wheezing. Heart: Regular rate and rhythm; no gallop, rub audible. Abdomen: Soft, obese, NTTP, ND, normal BS. Extremities: No cyanosis, clubbing, or edema. Neurological: Patient awake, alert, oriented as noted, cognitive function intact; pupils equally reactive to light and accommodation, cranial nerves II- XII grossly normal, moving all 4 extremities, no focal deficits, strength preserved, uncharged specific focal regions of decreased sensation on the left focal deltoid, left lateral abdomen/flank, left foot. Psychiatric: Affect appears normal, no acute evidence of depressive or anxiety feelings. Assessment and Plan: Please see hospital summary above. Weight / BMI Weight Weight: 266 lb 15.677 oz Body Mass Index (BMI) 39.2 ABG / Lab / Microbiology Data Result Diagrams: 09/28/20 06:20 09/28/20 06:20 Laboratory: Laboratory Results - last 24 hr 09/27/20 12:08: WBC 10.7, RBC 5.62, Hgb 15.6, Hct 47.4, MCV 84.3, MCH 27.8, MCHC 32.9, RDW Std Deviation 39.6, RDW Coeff of Elier 12.8, Plt Count 301, MPV 10.7, Immature Gran % (Auto) 0.300, Neut % (Auto) 82.6 H, Lymph % (Auto) 10.5 L, [place] % (Auto) 5.5, Eos % (Auto) 0.7, Baso % (Auto) 0.4, Absolute Neuts (auto) 8.9 H, Absolute Lymphs (auto) 1.13, Nucleated RBC % 0 09/27/20 12:08: Sodium 134 L, Potassium 4.0, Chloride 104, Carbon Dioxide 28.0, Anion Gap 2 L, BUN 16, Creatinine 1.13, Estim Creat Clear Calc 77.16, Est GFR (MDRD) Af Amer 87, Est GFR (MDRD) Non-Af 72, BUN/Creatinine Ratio 14.2, Glucose 110 H, Calcium 8.9, Troponin I High Sens 17.8 09/27/20 12:08: Magnesium 2.5, TSH 3.24 09/27/20 12:08: Hemoglobin A1c 5.9 H 09/27/20 16:50: Troponin I High Sens 19.2 09/27/20 19:10: Troponin I High Sens 16.3 09/27/20 23:10: Troponin I High Sens 15.9 09/28/20 06:20: WBC 13.3 H, RBC 5.54, Hgb 14.7, Hct 47.2, MCV 85.2, MCH 26.5 L, MCHC 31.1 L D, RDW Std Deviation 41.4, RDW Coeff of Elier 13.3, Plt Count 304, MPV 11.6, Immature Gran % (Auto) 0.300, Neut % (Auto) 83.5 H, Lymph % (Auto) 8.2 L, [place] % (Auto) 6.8, Eos % (Auto) 0.8, Baso % (Auto) 0.4, Absolute Neuts (auto) 11.1 H, Absolute Lymphs (auto) 1.09, Nucleated RBC % 0 09/28/20 06:20: Sodium 137, Potassium 3.7, Chloride 103, Carbon Dioxide 28.0, Anion Gap 6, BUN 16, Creatinine 1.00, Estim Creat Clear Calc 87.19, Est GFR (MDRD) Af Amer 101, Est GFR (MDRD) Non-Af 83, BUN/Creatinine Ratio 16.1, Glucose 106, Calcium 8.7, Total Bilirubin 0.60, AST 17, ALT 28, Alkaline Phosphatase 76, Total Protein 7.1, Albumin 3.5, Globulin 3.6, Albumin/Globulin Ratio 1.0, Triglycerides 131, Cholesterol 231 H, LDL Cholesterol 156 H, VLDL Cholesterol 26, HDL Cholesterol 49 Radiography Diagnostic Testing: Radiology Impression Brain CT 09/27/20 11:58 IMPRESSION: Normal unenhanced CT scan of the brain. Electronically Signed: Emanuel Reynoso MD at 12:39 EDT , Service support , Brain MRI 09/27/20 15:43 IMPRESSION: 1. No acute findings. 2. Chronic right thalamic lacunar infarct. Electronically Signed: Sharri Pelayo MD at 22:58 EDT Tel , Service support , Carotid Duplex 09/27/20 15:43 Interpretation Summary Intimal thickening right proximal internal carotid artery with less than 50% stenosis Less than 50% stenosis right external carotid artery Intimal thickening left proximal internal carotid artery with less than 50% stenosis Less than 50% stenosis left external carotid artery Patent and antegrade vertebral arteries bilaterally Ordering Physician: Tessy Molina Performed By: Minh Amador RVT Cervical Spine MRI 09/27/20 15:43 IMPRESSION: 1. C6-7 canal stenosis and cord flattening. 2. C5-6 cord flattening and borderline canal stenosis. 3. Severe foraminal stenosis from C3-4 through C6-7. Electronically Signed: Sharri Pelayo MD at 22:42 EDT Tel , Service support , Head MRA 09/27/20 15:43 IMPRESSION: Normal MRA of the head Electronically Signed: Sharri Pelayo MD at 21:57 EDT Tel , Service support , D/C Instructions Discharge Diet: 1800 Calorie Control Diet (Given your pre-diabetes we recommend following an 1800 ADA/cardiac diet.) Call your doctor if you observe: Fever of 101 or Higher, Numbness or Tingling (Increased or changing.), Inability to urinate, Shortness of breath, Dizziness, Fainting spells, Swelling in the ankles, Chest pain, Increased palpitations (irregular heartbeat) and Uncontrolled pain Meaningful Use Info Meaningful Use Diagnoses (Choose all that apply): None applicable Discharge Plan Admission Admit Date/Time: 09/27/20 14:37 Primary Reason for Your Visit: Hypertensive Urgency, Evidence prior CVA, Cervical neck disease, Pre-DM Attending Provider: Tessy Molina Primary Care Provider: Care Physician,No Primary Consulting Providers: Gideon Dumont Instructions Patient Instructions: Controlling High Blood Pressure, Risk Factors for Stroke, Diabetes Learn Serve Portion Size, Diabetes: Meal Planning, ED Hypertension New Begin Treatment, Diabetes and High Blood Pressure Additional Instructions / Restrictions: During the admission, you were started on medication for your blood pressure. Likely this will need to be increased and adjusted as we slowly want to normalize her blood pressure. During the admission MRI of the brain did note prior evidence of a previous stroke but no acute stroke. It is important that you continue aspirin, statin, your blood pressure regimen and very much so strive to improve your hemoglobin A1c as currently you are prediabetic patients. Diet and lifestyle will play a big role in improving the status. As discussed while inpatient, your primary care physician may decide to start Metformin depending on your efforts with lifestyle and diet. Cervical stenosis of the spinal canal with atypical left-sided paresthesias will continue to be evaluated outpatient with Dr. Dumont. Discharge Orders/Prescriptions Prescriptions: New atorvastatin 80 mg Tablet 80 mg PO QHS 30 Days Qty: 30 RF: 0 aspirin 81 mg Tablet,Chewable 81 mg PO DAILY@0800 30 Days Qty: 30 RF: 0 lisinopril-hydrochlorothiazide 20-12.5 mg tablet 1 tab PO DAILY Qty: 30 RF: 0 Referrals / Follow Up: Kasandra Cage MD [STAFF PHYSICIAN] - 10/10/20 11:00 am (YOU WILL BE SEEING THE [facility] SO YOU CAN BE SEEN SOONER. THEY WILL BE SENING YOU PAPERWORK IN THE MAIL. PLEASE FILL IT OUT AND BRING IT WITH YOU. ) Gideon Dumont DO [STAFF PHYSICIAN] - (Follow-up in 2 weeks.) Disposition Disposition (needs filled in before D/C Order can be placed): Home, Self Care Charges/Coding Visit Charges OBSV E&M: 02294 Observation care discharge
--- NOTE | 2020-09-28 12:07 | PHA.DC.MC ---
Pharmacy Service has performed discharge medication reconciliation and counseling for this patient. 1. ASPIRIN 81MG PO DAILY 2. ATORVASTATIN 80MG PO QHS 3. LISINOPRIL 20MG/HYDROCHLOROTHIAZIDE 12.5MG 1T PO DAILY The patient's discharge medication list was reviewed for discrepancies and discrepancies were resolved. Home Medications aspirin 81 mg PO DAILY@0800 30 Days #30 tab 09/28/20 atorvastatin 80 mg PO QHS 30 Days #30 tab 09/28/20 lisinopril-hydrochlorothiazide 1 tab PO DAILY #30 tab 09/28/20 The patient was counseled on the following discharge medications and changes in medications for homegoing were reviewed. The Reason for Use, instructions for use, and potential side effects were reviewed for all new medications. The patient's questions regarding all of their medications were answered. The patient was able to verbally demonstrate an understanding of their discharge medications.
== END 2020-09-28 10:51 | disposition home or self-care (01) ==
LOC: ED 14:33 → PCU 15:11
PROVIDERS: Admitting Provider Family Medicine; Emergency Provider Emergency Medicine; Visit Provider Family Medicine
DX: I16.0 Hypertensive urgency (principal); M48.02 Spinal stenosis, cervical region; I10 Essential (primary) hypertension; E66.9 Obesity, unspecified; E78.5 Hyperlipidemia, unspecified; R73.03 Prediabetes; Z86.73 Personal history of transient ischemic attack (TIA), and cerebral infarction without residual deficits; Z68.39 Body mass index [BMI] 39.0-39.9, adult
CPT/HCPCS: 36415; 70450; 70544; 70551; 72141; 80048; 80053; 80061; 83036; 83735; 84443; 84484; 85025; 92610; 93005; 93306; 93880; 96372; 96374; 96375; 97166; 97802; 99218; 99251; 99285; Q9957; A4216; C8929; G0378; G0463; J2405; J3490

== ENCOUNTER → 2020-11-16 11:14 | Outpatient (CLI) | payer BC, SELFPAY ==
[2020-11-16 12:41] LABS: ALB/GLOB Ratio 0.9 RATIO (0.9-2.4); AST(SGOT) 22 U/L (15-37); Alanine Aminotransfer ALT/SGPT 36 U/L (16-61); Albumin, Serum 3.8 g/dL (3.2-5.0); Alkaline Phosphatase 101 U/L (45-117); Anion Gap 4 (5-15); BUN 19 mg/dL (7-18); Calcium,Total 9.4 mg/dL (8.5-10.1); Chloride 101 mmol/L (98-107); Creatinine, Serum 1.19 mg/dL (0.70-1.30); EST Glomerular Filtration Rate 68 mL/min (>60); Est Glom Filt Rate - Afr Amer 82 mL/min (>60); Globulin 4.2 g/dL (2.2-4.2); Glucose 103 mg/dL (74-106); Potassium 4.3 mmol/L (3.5-5.1); Sodium Level 137 mmol/L (136-145)
== END ==
PROVIDERS: PCP Internal Medicine; Referring Provider Internal Medicine; Visit Provider Internal Medicine
DX: I10 Essential (primary) hypertension (principal)
CPT/HCPCS: 36415; 80053

== ENCOUNTER → 2020-12-06 20:22 | Outpatient (CLI) | payer BC, SELFPAY | PROVIDERS: PCP Internal Medicine; Visit Provider Internal Medicine | DX: G47.10 Hypersomnia, unspecified (principal) | CPT/HCPCS: 95811 ==

== ENCOUNTER → 2020-12-21 12:13 | Outpatient (CLI) | payer BC, SELFPAY ==
[2020-10-10 10:52] VITALS: BMI 39.2
--- NOTE | 2020-12-21 13:34 | NEURO ---
NCS and/or EMG Patient Report Ordering Doctor: Miguelito Law DATE OF SERVICE: 12/21/20 Miguelito Presents for electrodiagnostic testing of the left upper and lower limb. He reports numbness in the left hand and left leg. Electrodiagnostic findings:Left median motor nerve demonstrates prolonged distal latency with normal amplitude and conduction velocity. Left ulnar motor response within normal limits. Prolonged left median sensory latency at the wrist. Normal left ulnar and radial sensory responses. Normal sensory responses in the left lower limb. Normal left peroneal and tibial Motor latency and amplitude. Decreased left peroneal conduction velocity with evidence of conduction block at the fibular head. Borderline prolonged H reflex bilaterally.On needle EMG, all muscles tested in the left upper and left lower limb showed no evidence of denervation. Motor unit action potentials of normal amplitude and duration. Electrodiagnostic impression: This is an abnormal study. 1. Electrodiagnostic findings demonstrate left-sided median mononeuropathy. This is consistent with a mild to moderate left carpal tunnel syndrome. 2. Electrodiagnostic evidence demonstrates left sided peroneal neuropathy, with evidence of conduction block at the fibular head. 3. No electrodiagnostic evidence is noted for cervical or lumbar radiculopathy.
== END ==
PROVIDERS: PCP Internal Medicine; Referring Provider Physician Assistant; Visit Provider Physician Assistant
DX: R20.2 Paresthesia of skin (principal); M48.02 Spinal stenosis, cervical region
CPT/HCPCS: 95886; 95913

== ENCOUNTER → 2020-12-23 13:47 | Outpatient (CLI) | payer BC, SELFPAY | PROVIDERS: PCP Internal Medicine; Visit Provider Internal Medicine | DX: G47.10 Hypersomnia, unspecified (principal) ==

== ENCOUNTER → 2020-12-26 12:15 | Outpatient (CLI) | payer BC, SELFPAY | PROVIDERS: PCP Internal Medicine; Visit Provider Internal Medicine | DX: G47.10 Hypersomnia, unspecified (principal) ==

== ENCOUNTER 2021-05-29 11:24 | Outpatient (CLI) | payer BC, SELFPAY ==
[2021-05-29 11:59] LABS: Absolute Lymphocyte Count 1.29 X10^3/uL (0.83-4.51); Absolute Neutrophil Count 6.9 X10^3/uL (2.0-7.7); Basophil# 0.05 X10^3/uL; Basophil% 0.5 % (0-1); Eosinophil# 0.12 X10^3/uL; Eosinophils% 1.3 % (0-5); Hematocrit 48.6 % (40-54); Hemoglobin 15.6 g/dL (13.0-16.5); Lymphocyte # 1.29 X10^3/ul (0.83-4.51); Lymphocyte % 14.1 % (19-41); Mean Corp Hgb Conc 32.1 g/dL (32-36); Mean Corpuscular Hgb 27.9 pg (27.0-32.0); Mean Corpuscular Volume 86.9 fL (80-94); Monocyte# 0.77 X10^3/uL; Monocyte% 8.4 % (0-10); NRBC Flagged by Analyzer 0 % (0-5); Neutrophil # 6.87 X10^3/uL (2.7-7.7); Neutrophil % 75.3 % (47-70); Platelet Count 310 K/mm3 (150-450); RBC Distribution Width CV 12.7 % (11.6-14.6); RBC Distribution Width SD 39.8 fl (35.1-43.9); Red Blood Count 5.59 M/mm3 (4.6-6.2); White Blood Count 9.1 K/mm3 (4.4-11.0)
[2021-05-29 12:25] LABS: AST(SGOT) 29 U/L (15-37); Alanine Aminotransfer ALT/SGPT 59 U/L (16-61); Albumin, Serum 3.9 g/dL (3.2-5.0); Alkaline Phosphatase 92 U/L (45-117); Anion Gap 5 (5-15); BUN 19 mg/dL (7-18); BUN/Creat Ratio 14.7 RATIO (10-20); Calcium,Total 9.3 mg/dL (8.5-10.1); Chloride 102 mmol/L (98-107); Cholesterol 134 mg/dL (200); Creatinine, Serum 1.29 mg/dL (0.70-1.30); EST Glomerular Filtration Rate 62 mL/min (>60); Est Glom Filt Rate - Afr Amer 74 mL/min (>60); Glucose 104 mg/dL (74-106); High Density Lipoprotein 47 mg/dL; PSA,Total - Annual Screen 1.93 ng/mL (0.00-4.00); Potassium 4.8 mmol/L (3.5-5.1); Protein, Total 7.9 g/dL (6.4-8.2); Sodium Level 136 mmol/L (136-145); Triglycerides 112 mg/dL; Very Low Density Lipoprotein 22 mg/dL (5-40)
== END 2021-05-29 23:59 | disposition home or self-care (01) ==
LOC: BIMLAB 11:25
PROVIDERS: PCP Internal Medicine; Referring Provider Internal Medicine; Visit Provider Internal Medicine
DX: Z00.00 Encounter for general adult medical examination without abnormal findings (principal)
CPT/HCPCS: 36415; 80053; 80061; 84153; 85025; G0103

== ENCOUNTER 2021-09-15 08:47 | Day surgery (SDC) | payer BC, SELFPAY ==
[2021-09-15] MEDS: Lactated Ringers 1,000 ML 15 ML IV (09:00)
[2021-09-15 09:16] VITALS: BP 113/81; PULSE 81; RESP 16; TEMP 36.6; O2SAT 95; BMI 37.9
--- NOTE | 2021-09-15 10:14 | H&P.OPEN ---
HPI - General HPI Narrative SO NG, is a 56 M who presents for screening colonoscopy. The patient has never had a colonoscopy in the past. The patient reports no abdominal pain or blood in stool. He denies family history of colon cancer. [facility] Medical History (Updated 09/12/21 @ 13:40 by Lisa Thompson) Alcohol use Cardiology follow-up encounter Cervical stenosis of spinal canal Colon cancer screening CPAP (continuous positive airway pressure) dependence Essential hypertension Heartburn High cholesterol History of CVA (cerebrovascular accident) History of echocardiogram History of irregular heartbeat Hyperlipidemia Hypersomnolence Leg cramps Non-smoker Obesity (BMI 30-39.9) RAVIN on CPAP Wears glasses Home Medications hydrochlorothiazide 25 mg tablet 25 mg PO DAILY #90 tabs 11/16/20 [Rx Last Taken Unknown] lisinopril 40 mg tablet 40 mg PO DAILY #90 tabs 11/16/20 [Rx Last Taken 09/15/21] aspirin 81 mg chewable tablet 81 mg PO DAILY@0800 #90 tabs 01/30/21 [Rx Last Taken Unknown] atorvastatin 80 mg tablet 80 mg PO QHS #90 tabs 01/30/21 [Rx Last Taken Unknown] Allergy/AdvReac Type Severity Reaction Status Date / Time No Known Allergies Allergy Verified 09/15/21 09:15 Family History Father Myocardial infarction, Onset Age: 75 s/p CABG Heart disease Hypertension Thyroid disorder Surgical History Hx of umbilical hernia repair Social History household members: spouse other: 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 Smoking Status: Never smoker alcohol intake: current alcohol intake frequency: holidays/special occasions only substance use type: does not use Past Medical/Surgical History Planned Operation Planned Operative Procedure/s: CSCOPE OA Previous Hospitalizations/Surgeries HX Hospitalizations: Yes (09/2020/[facility] CRISIS) Any Problems With Anesthesia: No You/Your Family Experience Fever (Hyperthermia) With Anes: No Cholinesterase deficiency: No Cardiovascular Hx of Irregular Heartbeat and/or Afib: No Hx Heart Attack: No Hx Congestive Heart Failure: No Hx Hypertension: Yes (CONTROLLED WITH MEDS) Hx Pacemaker: No Respiratory Hx Chronic Obstructive Pulmonary Disease (COPD): No Hx Asthma: No Hx Emphysema: No Hx Sleep Apnea: Yes CPAP: Yes BIPAP: No Hx Respiratory Tract Infection/Cold (presently): No Result (for STOP score): Positive Smoking Status: Never smoker Gastrointestinal Hx Gastroesophageal Reflux: No Hx Ulcer: No Neurological Hx Seizures: No Hx Head/Neck Injury: No Hx Headaches: No Hx Back Injury/Pain: No Does patient have nerve stimulator: No Reproduction : No Miscellaneous Recent Exposure to Contagious Disease: No Allergies No Known Allergies Allergy (Verified 09/15/21 09:15) Discharge Is Pt Admitted From a Penitentiary, or a Jail: No After D/C, Where Do you Plan to Go: Return Home Vital Signs Vital Signs Vital Signs: 09/15/21 09:16 09/15/21 09:16 Temperature 97.8 F Temperature Source Temporal Pulse Rate 81 Respiratory Rate 16 Respiratory Pattern Normal Blood Pressure 113/81 H Blood Pressure Mean 91 Blood Pressure Source Monitor Blood Pressure Position Semi-Fowlers Blood Pressure Location Left Arm Pulse Ox 95 Oxygen Delivery Method Room Air Weight Weight: 264 lb 8.875 oz Body Mass Index (BMI) 37.9 Physical Exam Const alert and oriented x3 Resp normal respiratory effort and normal air movement Cardio regular rate and regular rhythm GI soft to palpation, non-tender and non-distended Assessment & Plan Assessment/Plan (1) Colon cancer screening: PLAN: I explained endoscopy in detail to the patient. I explained the risks including but not limited to stroke or heart attack with anesthesia, perforation of the GI tract, bleeding, infection. I explained that any of these could necessitate further emergency surgery. The patient understands and all questions were answered sufficiently. The patient wishes to proceed with procedure. Velasquez Waggoner MD Pager: [facility] [address] [place] [address], [address] [place] [address] Office: Surgery Risks - Colonoscopy Risks Include but are not Limited To: Risks include but are not limited to: Bleeding, perforation requiring further surgery, inability to complete colonoscopy requiring barium enema.
--- NOTE | 2021-09-15 10:15 | COLBX_PTH ---
PATIENT: SO NG II LOC: EN U#:[id number] AGE/SX: 56/M ROOM: RE09/15/[address]: Dr. Velasquez Waggoner MD : 1965 BED: DIS: 09/15/2021 SPEC #: [id number] RECD: 09/15/21 13:14 STATUS: FRANKY DRIVER #: [id number] MATHEW: 09/15/21 10:[address]: Velasquez Waggoner DEPT: SURGICAL PATHOLOGY RECD BY: Gabriel Norris ENTERED: 09/15/21 13:27 SP TYPE: COLON BX OTHR DR: Dr. Kasandra Cage MD Tissues: Rectum, NOS Procedures: Surgery Specimen Level IV HEADER OPERATION: Colonoscopy ? open access (MAC), polypectomy PRE-OP DIAGNOSIS: Colon cancer screening TISSUE SUBMITTED: Rectal polyp MICROSCOPIC DIAGNOSIS Rectal polyp, polypectomy: Hyperplastic polyp with cautery artifacts. SJ:alvina 09/19/2021 MICROSCOPIC DESCRIPTION Slides are reviewed. GROSS DESCRIPTION Received in fixative is one container labeled with the patient's name and designated rectal polyp. The specimen consists of one irregular fragment of light vega soft tissue that measures 0.3 x 0.3 x 0.1 cm. The specimen is totally submitted in one cassette. / HÉCTOR:alvina 09/15/2021 TC:1 CPT: 43035
[2021-09-15 10:45] VITALS: BP 113/81; BP 96/57; PULSE 78; RESP 18; TEMP 36.4; O2SAT 96
--- NOTE | 2021-09-15 10:49 | OP.COLON_ITS ---
Patient Name: Miguelito Kim Procedure Date: 09/15/2021 10:23 AM Date of : 1965 Age: 56 Procedure: Colonoscopy Indications: Screening for colorectal malignant neoplasm Providers: Vleasquez Waggoner MD Medicines: Monitored Anesthesia Care Patient Profile: This is a 56 year old male. Refer to note in patient chart for documentation of history and physical. Last Colonoscopy: none. The patient's first colonoscopy is today. Complications: No immediate complications. Procedure: Pre-Anesthesia Assessment: - Prior to the procedure, a History and Physical was performed, and patient medications and allergies were reviewed. The patient's tolerance of previous anesthesia was also reviewed. The risks and benefits of the procedure and the sedation options and risks were discussed with the patient. All questions were answered, and informed consent was obtained. Prior Anticoagulants: The patient has taken no previous anticoagulant or antiplatelet agents. After reviewing the risks and benefits, the patient was deemed in satisfactory condition to undergo the procedure. After I obtained informed consent, the scope was passed under direct vision. Throughout the procedure, the patient's blood pressure, pulse, and oxygen saturations were monitored continuously. The adult colonoscope was introduced through the anus and advanced to the cecum, identified by appendiceal orifice and ileocecal valve. The colonoscopy was performed without difficulty. The patient tolerated the procedure well. The quality of the bowel preparation was good. Scope In: 10:31:56 AM Scope Withdrawal Time 0 hours 6 minutes 54 seconds Scope Out: 10:41:57 AM Total Procedure Duration Time 0 hours 10 minutes 1 second Findings: A small polyp was found in the rectum. The polyp was removed with a hot snare. Resection and retrieval were complete. The exam was otherwise without abnormality on direct and retroflexion views. Impression: - One small polyp in the rectum, removed with a hot snare. Resected and retrieved. - The examination was otherwise normal on direct and retroflexion views. Recommendation: - Discharge patient to home. - Resume previous diet. - Continue present medications. - Await pathology results. - Repeat colonoscopy date to be determined after pending pathology results are reviewed for surveillance. Procedure Code(s): --- Professional --- 65889, Colonoscopy, flexible; with removal of tumor(s), polyp(s), or other lesion(s) by snare technique Diagnosis Code(s): --- Professional --- Z12.11, Encounter for screening for malignant neoplasm of colon K62.1, Rectal polyp CPT copyright 2017 [employer]. All rights reserved. The codes documented in this report are preliminary and upon laborer laboratory review may be revised to meet current compliance requirements. Velasquez Waggoner MD 09/15/2021 10:48:54 AM This report has been signed electronically. Number of Addenda: 0 Note Initiated On: 09/15/2021 10:23 AM
[2021-09-15 10:50] VITALS: BP 113/81; BP 129/75; PULSE 88; RESP 18; O2SAT 97
--- NOTE | 2021-09-15 10:50 | OP.CCLET_ITS ---
09/15/2021 Kasandra Cage MD [address] [place] [address] [place] [address] Re : Colonoscopy procedure for Miguelito Kim Dear Dr. Cage This procedure was performed on Wednesday, September 15, 2021. My impressions and recommendations are as follows: Impressions : - One small polyp in the rectum, removed with a hot snare. Resected and retrieved. - The examination was otherwise normal on direct and retroflexion views. Recommendations : - Discharge patient to home. - Resume previous diet. - Continue present medications. - Await pathology results. - Repeat colonoscopy date to be determined after pending pathology results are reviewed for surveillance. My findings are described in the full procedure note, which is enclosed. If I can be of further assistance, please feel free to contact me at Doctor phone number(s): , Work: . Sincerely, Velasquez Waggoner MD 09/15/2021 10:48:54 AM This report has been signed electronically.
[2021-09-15 10:55] VITALS: BP 113/81; BP 132/81; PULSE 70; RESP 18; O2SAT 97
[2021-09-15 11:00] VITALS: BP 113/81; BP 138/70; PULSE 65; RESP 18; TEMP 36.6; O2SAT 99
== END 2021-09-15 11:24 | disposition home or self-care (01) ==
LOC: EN 08:50 → AC 08:52
PROVIDERS: PCP Internal Medicine; Referring Provider Internal Medicine; Visit Provider Surgery
PROC: 0DJD8ZZ Inspection of Lower Intestinal Tract, Via Natural or Artificial Opening Endoscopic (ICD-10-PCS; CPT 45378; principal; 2021-09-15 10:10)
DX: Z12.11 Encounter for screening for malignant neoplasm of colon (principal); K62.1 Rectal polyp; I10 Essential (primary) hypertension; E78.00 Pure hypercholesterolemia, unspecified; E66.9 Obesity, unspecified; G47.33 Obstructive sleep apnea (adult) (pediatric); Z68.37 Body mass index [BMI] 37.0-37.9, adult; Z79.82 Long term (current) use of aspirin; Z79.899 Other long term (current) drug therapy; Z86.73 Personal history of transient ischemic attack (TIA), and cerebral infarction without residual deficits
CPT/HCPCS: 45385; 88305; J7120; J2405

== ENCOUNTER → 2022-03-30 | Outpatient (CLI) | payer BC, SELFPAY ==
[2022-03-30 12:25] LABS: Absolute Lymphocyte Count 1.58 X10^3/uL (0.83-4.51); Absolute Neutrophil Count 7.1 X10^3/uL (2.0-7.7); Basophil# 0.05 X10^3/uL; Basophil% 0.5 % (0-1); Eosinophil# 0.15 X10^3/uL; Eosinophils% 1.6 % (0-5); Hematocrit 48.5 % (40-54); Hemoglobin 16.1 g/dL (13.0-16.5); Lymphocyte # 1.58 X10^3/ul (0.83-4.51); Lymphocyte % 16.5 % (19-41); Mean Corp Hgb Conc 33.2 g/dL (32-36); Mean Corpuscular Hgb 28.3 pg (27.0-32.0); Mean Corpuscular Volume 85.2 fL (80-94); Mean Platelet Vol. 11.1 fl (6.2-12.0); Monocyte# 0.68 X10^3/uL; Monocyte% 7.1 % (0-10); NRBC Flagged by Analyzer 0 % (0-5); Neutrophil % 73.9 % (47-70); Platelet Count 290 K/mm3 (150-450); RBC Distribution Width CV 12.9 % (11.6-14.6); RBC Distribution Width SD 39.9 fl (35.1-43.9); Red Blood Count 5.69 M/mm3 (4.6-6.2); White Blood Count 9.6 K/mm3 (4.4-11.0)
[2022-03-30 13:26] LABS: AST(SGOT) 25 U/L (15-37); Alanine Aminotransfer ALT/SGPT 45 U/L (16-61); Albumin, Serum 3.9 g/dL (3.2-5.0); Alkaline Phosphatase 88 U/L (45-117); Anion Gap 6 (5-15); BUN 21 mg/dL (7-18); BUN/Creat Ratio 16.3 RATIO (10-20); Calcium,Total 9.5 mg/dL (8.5-10.1); Chloride 101 mmol/L (98-107); Cholesterol 149 mg/dL (200); Creatinine, Serum 1.29 mg/dL (0.70-1.30); EST Glomerular Filtration Rate 61 mL/min (>60); Est Glom Filt Rate - Afr Amer 74 mL/min (>60); Globulin 3.9 g/dL (2.2-4.2); Glucose 101 mg/dL (74-106); High Density Lipoprotein 53 mg/dL; Potassium 4.6 mmol/L (3.5-5.1); Protein, Total 7.8 g/dL (6.4-8.2); Sodium Level 136 mmol/L (136-145); Triglycerides 112 mg/dL; Very Low Density Lipoprotein 22 mg/dL (5-40)
== END | disposition home or self-care (01) ==
LOC: BIMLAB 11:26
PROVIDERS: PCP Internal Medicine; Referring Provider Internal Medicine; Visit Provider Internal Medicine
DX: I10 Essential (primary) hypertension (principal)
CPT/HCPCS: 36415; 80053; 80061; 85025

== ENCOUNTER → 2022-09-28 | Outpatient (CLI) | payer BC, SELFPAY ==
[2022-09-28 13:06] LABS: Anion Gap 4 (5-15); BUN 18 mg/dL (7-18); BUN/Creat Ratio 13.4 RATIO (10-20); Calcium,Total 9.1 mg/dL (8.5-10.1); Chloride 103 mmol/L (98-107); Creatinine, Serum 1.34 mg/dL (0.70-1.30); EST Glomerular Filtration Rate 59 mL/min (>60); Est Glom Filt Rate - Afr Amer 71 mL/min (>60); Glucose 136 mg/dL (74-106); PSA,Total - Annual Screen 2.84 ng/mL (0.00-4.00); Potassium 4.4 mmol/L (3.5-5.1); Sodium Level 136 mmol/L (136-145)
== END | disposition home or self-care (01) ==
LOC: BIMLAB 09:00
PROVIDERS: PCP Internal Medicine; Referring Provider Internal Medicine; Visit Provider Internal Medicine
DX: N40.0 Benign prostatic hyperplasia without lower urinary tract symptoms (principal); I10 Essential (primary) hypertension; R73.9 Hyperglycemia, unspecified
CPT/HCPCS: 36415; 80048; 83036; 84153; G0103

== ENCOUNTER → 2022-11-08 | Outpatient (CLI) | payer BC, SELFPAY ==
[2022-11-08 12:42] LABS: PSA,Total- Diagnostic 2.32 ng/mL (0.0-4.0)
== END | disposition home or self-care (01) ==
LOC: LAB 11:49
PROVIDERS: PCP Internal Medicine; Referring Provider Urology; Visit Provider Urology
DX: Z12.5 Encounter for screening for malignant neoplasm of prostate (principal)
CPT/HCPCS: 36415; 84153

== ENCOUNTER → 2022-12-31 | Outpatient (CLI) | payer BC, SELFPAY ==
[2022-12-31 12:40] LABS: Hemoglobin A1c 6.1 % (3.8-5.6)
[2022-12-31 12:45] LABS: Anion Gap 6 (5-15); BUN 15 mg/dL (7-18); BUN/Creat Ratio 12.5 RATIO (10-20); Calcium,Total 9.1 mg/dL (8.5-10.1); Chloride 104 mmol/L (98-107); EST Glomerular Filtration Rate 67 mL/min (>60); Est Glom Filt Rate - Afr Amer 80 mL/min (>60); Glucose 106 mg/dL (74-106); Potassium 4.7 mmol/L (3.5-5.1); Sodium Level 139 mmol/L (136-145)
== END | disposition home or self-care (01) ==
LOC: BIMLAB 11:18
PROVIDERS: PCP Internal Medicine; Visit Provider Internal Medicine
DX: I10 Essential (primary) hypertension (principal); R73.03 Prediabetes
CPT/HCPCS: 36415; 80048; 83036

== ENCOUNTER → 2023-04-18 | Outpatient (CLI) | payer BC, SELFPAY ==
[2023-04-18 16:49] LABS: Absolute Lymphocyte Count 1.74 X10^3/uL (0.83-4.51); Absolute Neutrophil Count 8.1 X10^3/uL (2.0-7.7); Basophil# 0.06 X10^3/uL; Basophil% 0.6 % (0-1); Eosinophil# 0.14 X10^3/uL; Eosinophils% 1.3 % (0-5); Hematocrit 49.2 % (40-54); Hemoglobin 15.7 g/dL (13.0-16.5); Lymphocyte # 1.74 X10^3/ul (0.83-4.51); Lymphocyte % 16.1 % (19-41); Mean Corp Hgb Conc 31.9 g/dL (32-36); Mean Corpuscular Hgb 27.9 pg (27.0-32.0); Mean Corpuscular Volume 87.4 fL (80-94); Mean Platelet Vol. 11.6 fl (6.2-12.0); Monocyte# 0.75 X10^3/uL; Monocyte% 6.9 % (0-10); NRBC Flagged by Analyzer 0 % (0-5); Neutrophil # 8.12 X10^3/uL (2.7-7.7); Neutrophil % 74.8 % (47-70); Platelet Count 268 K/mm3 (150-450); RBC Distribution Width CV 12.4 % (11.6-14.6); RBC Distribution Width SD 39.4 fl (35.1-43.9); Red Blood Count 5.63 M/mm3 (4.6-6.2); White Blood Count 10.8 K/mm3 (4.4-11.0)
[2023-04-18 17:10] LABS: AST(SGOT) 32 U/L (15-37); Alanine Aminotransfer ALT/SGPT 45 U/L (16-61); Alkaline Phosphatase 89 U/L (45-117); Anion Gap 4 (5-15); BUN 19 mg/dL (7-18); BUN/Creat Ratio 13.4 RATIO (10-20); Calcium,Total 9.9 mg/dL (8.5-10.1); Chloride 106 mmol/L (98-107); Cholesterol 160 mg/dL (200); Creatinine, Serum 1.42 mg/dL (0.70-1.30); EST Glomerular Filtration Rate 55 mL/min (>60); Est Glom Filt Rate - Afr Amer 66 mL/min (>60); Globulin 3.9 g/dL (2.2-4.2); Glucose 102 mg/dL (74-106); Hemoglobin A1c 6.1 % (3.8-5.6); High Density Lipoprotein 54 mg/dL; Potassium 4.3 mmol/L (3.5-5.1); Protein, Total 7.9 g/dL (6.4-8.2); Sodium Level 138 mmol/L (136-145); Triglycerides 130 mg/dL; Very Low Density Lipoprotein 26 mg/dL (5-40)
--- OUTSIDE RECORDS SUMMARY | 2023-04-18 19:25 | XMS RPT_ITS | CCD ---
Author Name Unknown Address [address] [place] [address] Organization [facility] Results Test Name Value Interpretation Reference Range Facil ity Progress note 09-27-2020 Note Date & Type Note Facility 09-27-2020 Note HNO ID: [id number] Author: Fam Alexis APRN.ENERGY PROFESSIONAL Service: ? Author Type: Nurse Practitioner Type: Progress Notes Filed: 09/27/2020 11:31 AM Note Text: Patient reports having a wellness check through his employer and was told he needed to leave work and be seen due to hypertension. He presents today with elevated BP and left sided tingling in the arm and leg. VS delineated below: BP (!) 240/148 Pulse 100 Temp 36.4 ?C (97.6 ?F) Resp 18 Wt 124.3 kg (274 lb) SpO2 98% Instructed patient to go to ER for further evaluation Discussed emergent need for BP control. He acknoweldged Patients spouse to drive him to [facility] ER. [facility] Summary Purpose Family History No Family History Records Found Advance Directives No Advanced Directives Records Found Additional Source Comments (unrecognized sect ion and content) No Status Records Found INFORMATION SOURCE (unrecogn ized section and content) FOR RECORDS PERTAINING TO PATIENTS WHO ARE OR HAVE BEEN ENROLLED IN A CHEMICAL DEPENDENCY/SUBSTANCEABUSE PROGRAM, SOME INFORMATION MAY BE OMITTED. This clinical summary was aggregated from multiple sources. Caution should be exercised in using it in the provision of clinical care. This summary normalizes information from multiple sources, and as a consequence, information in this document may materially change the coding, format and clinical context of patient data. In addition, data may be omitted in some cases. CLINICAL DECISIONS SHOULD BE BASED ON THE PRIMARY CLINICAL RECORDS. [employer] provides no warranty or guarantee of the accuracy or completeness of information in this document.
== END | disposition home or self-care (01) ==
LOC: BIMLAB 15:14
PROVIDERS: PCP Internal Medicine; Referring Provider Internal Medicine; Visit Provider Internal Medicine
DX: I10 Essential (primary) hypertension (principal); E78.5 Hyperlipidemia, unspecified; N40.0 Benign prostatic hyperplasia without lower urinary tract symptoms; R73.03 Prediabetes
CPT/HCPCS: 36415; 80053; 80061; 83036; 84153; 85025

== ENCOUNTER → 2023-10-18 | Outpatient (CLI) | payer BC, SELFPAY ==
[2023-10-18 16:32] LABS: Anion Gap 4 (5-15); BUN 19 mg/dL (7-18); Calcium,Total 9.7 mg/dL (8.5-10.1); Chloride 101 mmol/L (98-107); Creatinine, Serum 1.27 mg/dL (0.70-1.30); EST Glomerular Filtration Rate 62 mL/min (>60); Est Glom Filt Rate - Afr Amer 75 mL/min (>60); Glucose 121 mg/dL (74-106); Potassium 4.5 mmol/L (3.5-5.1); Sodium Level 135 mmol/L (136-145)
[2023-10-18 17:21] LABS: Hemoglobin A1c 6.1 % (3.8-5.6)
== END | disposition home or self-care (01) ==
LOC: BIMLAB 11:32
PROVIDERS: PCP Internal Medicine; Referring Provider Internal Medicine; Visit Provider Internal Medicine
DX: I10 Essential (primary) hypertension (principal); R73.03 Prediabetes
CPT/HCPCS: 36415; 80048; 83036

== ENCOUNTER → 2024-04-22 | Outpatient (CLI) | payer BC, SELFPAY ==
[2024-04-22 12:35] LABS: Absolute Lymphocyte Count 1.26 X10^3/uL (0.83-4.51); Basophil# 0.05 X10^3/uL; Basophil% 0.6 % (0-1); Eosinophil# 0.11 X10^3/uL; Eosinophils% 1.4 % (0-5); Hematocrit 49.9 % (40-54); Hemoglobin 15.6 g/dL (13.0-16.5); Lymphocyte # 1.26 X10^3/ul (0.83-4.51); Lymphocyte % 15.7 % (19-41); Mean Corp Hgb Conc 31.3 g/dL (32-36); Mean Corpuscular Hgb 27.3 pg (27.0-32.0); Mean Corpuscular Volume 87.4 fL (80-94); Mean Platelet Vol. 11.2 fl (6.2-12.0); Monocyte# 0.55 X10^3/uL; Monocyte% 6.9 % (0-10); NRBC Flagged by Analyzer 0 % (0-5); Neutrophil # 6.02 X10^3/uL (2.7-7.7); Platelet Count 283 K/mm3 (150-450); RBC Distribution Width CV 12.6 % (11.6-14.6); RBC Distribution Width SD 40.1 fl (35.1-43.9); Red Blood Count 5.71 M/mm3 (4.6-6.2)
[2024-04-22 13:01] LABS: AST(SGOT) 26 U/L (15-37); Alanine Aminotransfer ALT/SGPT 40 U/L (16-61); Albumin, Serum 3.8 g/dL (3.2-5.0); Alkaline Phosphatase 90 U/L (45-117); Anion Gap 7 (5-15); BUN 17 mg/dL (7-18); BUN/Creat Ratio 14.9 RATIO (10-20); Calcium,Total 9.6 mg/dL (8.5-10.1); Chloride 101 mmol/L (98-107); Cholesterol 153 mg/dL (200); Creatinine, Serum 1.14 mg/dL (0.70-1.30); EST Glomerular Filtration Rate 70 mL/min (>60); Est Glom Filt Rate - Afr Amer 85 mL/min (>60); Glucose 115 mg/dL (74-106); High Density Lipoprotein 53 mg/dL; PSA,Total - Annual Screen 3.72 ng/mL (0.00-4.00); Potassium 4.4 mmol/L (3.5-5.1); Protein, Total 7.8 g/dL (6.4-8.2); Sodium Level 136 mmol/L (136-145); Triglycerides 118 mg/dL; Very Low Density Lipoprotein 24 mg/dL (5-40)
[2024-04-22 14:10] LABS: Hemoglobin A1c 5.5 % (3.8-5.6)
== END | disposition home or self-care (01) ==
LOC: BIMLAB 11:11
PROVIDERS: PCP Internal Medicine; Referring Provider Internal Medicine; Visit Provider Internal Medicine
DX: I10 Essential (primary) hypertension (principal); Z12.5 Encounter for screening for malignant neoplasm of prostate; R73.03 Prediabetes
CPT/HCPCS: 36415; 80053; 80061; 83036; 84153; 85025; G0103

== ENCOUNTER → 2024-10-21 | Outpatient (CLI) | payer BC, SELFPAY ==
[2024-10-21 16:43] LABS: Anion Gap 14 (5-15); BUN 19 mg/dL (4-19); BUN/Creat Ratio 16.9 RATIO (10-20); Calcium,Total 9.7 mg/dL (7.6-11.0); Carbon Dioxide 24.0 mmol/L (21.0-32.0); Chloride 99 mmol/L (98-108); Glucose 123 mg/dL (70-99); Potassium 4.5 mmol/L (3.3-5.1)
== END | disposition home or self-care (01) ==
LOC: BIMLAB 11:53
PROVIDERS: PCP Internal Medicine; Referring Provider Internal Medicine; Visit Provider Internal Medicine
DX: I10 Essential (primary) hypertension (principal)
CPT/HCPCS: 36415; 80048